=== PATIENT | male | born 1935 | race Caucasian/White ===

== ENCOUNTER 2021-01-05 22:00 | Inpatient (IN) | payer MEDICARE ==
--- NOTE | 2021-01-05 22:28 | ED ---
General Adult HPI - General Chief complaint: Syncope Stated complaint: Fall Time Seen by Provider: 01/05/21 22:02 Source: patient, EMS Mode of arrival: EMS Limitations: physical limitation (Patient very hard of hearing) - History of Present Illness Initial comments: Patient is an 85-year-old man brought by ambulance to be evaluated after family found him on the bedroom floor tonight. The patient reportedly had gone to sleep after eating around 7 PM. He appeared to have fallen from bed around 8:30. When I interview the patient, he complained of some upper neck pain, but stated that he felt this was from reading with his head propped up for 3 hours last night. Onset/Timin -: hour(s) Location: head, neck Consistency: constant Improves with: none Worsens with: none Associated Symptoms: confusion - Related Data Allergies Allergy/AdvReac Type Severity Reaction Status Date / Time No Known Allergies Allergy Verified 01/05/21 22:18 Review of Systems ROS Statement: Those systems with pertinent positive or pertinent negative responses have been documented in the HPI. ROS Other: All systems not noted in ROS Statement are negative. Constitutional: Denies: fever, chills, weakness Eyes: Denies: vision change Respiratory: Denies: cough, dyspnea Cardiovascular: Denies: chest pain Gastrointestinal: Denies: abdominal pain, vomiting, diarrhea Genitourinary: Denies: dysuria Musculoskeletal: Denies: back pain Neurological: Denies: headache, weakness Past Medical History Past Medical History: Hyperlipidemia History of Any Multi-Drug Resistant Organisms: None Reported Past Surgical History: No Surgical Hx Reported Past Psychological History: No Psychological Hx Reported Smoking Status: Never smoker Past Alcohol Use History: None Reported Past Drug Use History: None Reported General Exam Limitations: no limitations General appearance: alert, in no apparent distress Head exam: Present: atraumatic, normocephalic Eye exam: Present: normal appearance. Absent: scleral icterus, conjunctival injection Neck exam: Present: normal inspection. Absent: tenderness Respiratory exam: Present: normal lung sounds bilaterally. Absent: respiratory distress, wheezes, rales, rhonchi, stridor Cardiovascular Exam: Present: irregular rhythm, normal heart sounds. Absent: systolic murmur, diastolic murmur, rubs, gallop GI/Abdominal exam: Present: soft. Absent: distended, tenderness, guarding, rebound, rigid, mass Extremities exam: Present: normal inspection, normal capillary refill. Absent: pedal edema, calf tenderness Back exam: Absent: CVA tenderness (R), CVA tenderness (L) Neurological exam: Present: alert Skin exam: Present: warm, dry, intact, normal color. Absent: rash Course Vital Signs 01/05/21 22:12 Temperature 98.8 F Pulse Rate 111 H Respiratory 20 Rate Blood Pressure 121/93 O2 Sat by Pulse 94 L Oximetry EKG Findings - EKG Results: EKG: interpreted by ERMD, normal axis, normal QRS, normal ST/T EKG shows: atrial fibrillation (Rate 98 bpm) Disposition Referrals: Donovan Garcia MD [Primary Care Provider] - 1-2 days
--- NOTE | 2021-01-05 22:43 | XR ---
EXAMINATION TYPE: XR chest 1V portable DATE OF EXAM: 01/05/2021 COMPARISON: NONE HISTORY: Dysrhythmia. Hypoxemia. TECHNIQUE: Single view FINDINGS: There is some patchy airspace consolidation in the left and right lower lobes. There is no heart failure. Thoracic aorta is atheromatous. Heart is top normal in size. There is no definite pleu ral effusion. Bony thorax is intact. IMPRESSION: Bilateral lower lobe pneumonia.
[2021-01-05 22:49] LABS: HCT 38.2 % (39.0-53.0); HGB 12.6 gm/dL (13.0-17.5); MCH 31.6 pg (25.0-35.0); MCHC 32.9 g/dL (31.0-37.0); MCV 96.1 fL (80.0-100.0); Mean Platelet Volume 8.1; Platelet Count 102 k/uL (150-450); RBC 3.98 m/uL (4.30-5.90); RDW 12.7 % (11.5-15.5); WBC 6.3 k/uL (3.8-10.6)
--- NOTE | 2021-01-05 22:56 | CT ---
EXAMINATION TYPE: CT brain hugo middleton DATE OF EXAM: 01/05/2021 COMPARISON: None HISTORY: Fall CT DLP: 1315.60 mGycm Automated exposure control for dose reduction was used. There is some patchy hypodensity in the periventricular white matter. There is no mass effect nor mid line shift. There is no sign of intracranial hemorrhage. Calvarium is intact. The cervical vertebra have normal alignment. Posterior elements are intact. There is anterior spurrin g at C5-6 and C6-7. Facet joints are intact. Prevertebral soft tissues are intact. The skull base is intact. There is incomplete pneumatization of the mastoid sinuses. There is apparent previous surgery at the right mastoid sinus. IMPRESSION: Chronic small vessel ischemia. No acute intracranial abnormality. Spondylotic changes in the lower cervical spine. No fracture.
[2021-01-05 23:09] LABS: Albumin 3.5 g/dL (3.5-5.0); Calcium 8.4 mg/dL (8.4-10.2); Magnesium 1.3 mg/dL (1.6-2.3); Total Bilirubin 0.9 mg/dL (0.2-1.3); Total Protein 6.3 g/dL (6.3-8.2)
[2021-01-05 23:35] LABS: Band Neutrophils % 22 %; Lymphocytes # (M) 0.32 k/uL (1.0-4.8); Metamyelocytes # (M) 0.13 k/uL (0); Metamyelocytes % 2 %; Monocytes # (M) 0.25 k/uL (0-1.0); Neutrophils % (M) 67 %; Nucleated Red Blood Cells 0 /100 WBC (0-0); Poikilocytosis (M) Present; Total Cells Counted 100
[2021-01-05] MEDS ORDERED: PNEUMONIA PROTOCOL UTILIZED 1 EACH MISC PO PRN (23:59)
[2021-01-05] MEDS ORDERED: AZITHROMYCIN 500 MG in SODIUM CHLORIDE 0.9% 250 ML IVPB STA (23:59)
[2021-01-06] MEDS ORDERED: SODIUM CHLORIDE 0.9% 500 ML 500 ML IV ONE (01:51)
[2021-01-06 05:30] LABS: Appearance,Urine Cloudy (Clear); Bilirubin,Urine Negative (Negative); Blood,Urine Trace (Negative); Color,Urine Yellow; Glucose,Urine (UA) Negative (Negative); Ketones,Urine 1+ (Negative); Leukocyte Esterase,Urine Negative (Negative); Mucus,Urine Rare /hpf; Nitrite,Urine Negative (Negative); Protein,Urine 1+ (Negative); RBC,Urine 2 /hpf (0-5); Specific Gravity,Urine 1.023 (1.001-1.035); Squamous Epithelial Cell,Urine 1 /hpf (0-4); Urobilinogen,Urine <2.0 mg/dL (<2.0); WBC,Urine 2 /hpf (0-5)
--- NOTE | 2021-01-06 06:48 | XR ---
EXAMINATION TYPE: XR chest 1V portable DATE OF EXAM: 01/06/2021 COMPARISON: 01/05/2021 HISTORY: Follow-up pneumonia TECHNIQUE: Single frontal view of the chest is obtained. FINDINGS: There is a large consolidative opacity in the right lower lobe which is unchanged compared to previous. The left lung remains clear. There is no pneumothorax or large pleural effusion. The he art and pulmonary vasculature are normal. The osseous structures are intact IMPRESSION: No interval change in the right lower lobe infiltrate
[2021-01-06] MEDS ORDERED: Magnesium Replacement Protocol 1 EACH MISC MISCELLANE PRN (07:58)
[2021-01-06] MEDS: MAGNESIUM SULFATE-D5W PMX 1 GM in DEXTROSE/WATER 1 100ML.BAG IVPB SCH ×3 (09:03→13:32)
[2021-01-06] MEDS: ENOXAPARIN 60 MG/0.6 ML SYRINGE SQ SCH ×2 (09:04→21:46)
--- NOTE | 2021-01-06 18:21 | P.HPIM ---
History of Present Illness H&P Date: 01/06/21 Chief Complaint: s/p Fall Mr. Blakely is an 85-year-old male with a past medical history of coronary artery disease, hyperlipidemia brought into the hospital by family members as he was found lying on the floor in his bedroom. patient is a poor historian so most of the history is hypertension from the review of records and nursing staff report. Apparently patient went to bed around 7 PM last night and at around 8:30 PM the patient's family members found him on the floor and brought him to the hospital for further evaluation. Patient states that he lives with his 2 d aughters and they moved from [place] 3 months back. So that is not the lot of information in the system regarding his past medical history is as he is new to this area. Family members noted bedside that to get more information currently. Patient is pleasantly confused. On reviewing the patient's vitals at the time of admission his temperature of 98.8, heart rate in 110s, respiratory rate 20, blood pressure 121/90. Saturating at 94% on 5 L of oxygen. On reviewing his labs white count is 6.3, hemoglobin 12.6, platelets 10. Sodium 135 combination 4, chloride 105, bicarb 20. BUN 29, creatinine 1.36. Troponin 0.440, 0.547, 0.345. He had urine analysis test was negative for leukocyte esterase and WBCs or RBCs.Balbuena PCR is negative. He had a chest x-ray that was positive for bilateral lower lobe pneumonia. Patient had CAT scan of the brain that was negative for any acute intracranial abnormality and was showing chronic small vessel ischemia. Review of Systems ROS unobtainable: due to mental status Past Medical History Past Medical History: Hyperlipidemia History of Any Multi-Drug Resistant Organisms: None Reported Past Surgical History: No Surgical Hx Reported Past Psychological History: No Psychological Hx Reported Smoking Status: Never smoker Past Alcohol Use History: None Reported Past Drug Use History: None Reported Medications and Allergies Home Medications Medication Instructions Recorded Confirmed Type Simvastatin [Zocor] 20 mg PO HS 01/05/21 01/05/21 History Tamsulosin HCl [Flomax] 0.4 mg PO HS 01/05/21 01/05/21 History Rivaroxaban [Xarelto] 20 mg PO HS 01/06/21 01/06/21 History Allergies Allergy/AdvReac Type Severity Reaction Status Date / Time No Known Allergies Allergy Verified 01/05/21 23:09 Physical Exam Vitals: Vital Signs Temp Pulse Pulse Resp BP BP Pulse Ox 01/06/21 08:00 68 91/54 98 01/06/21 04:00 98 F 80 22 90/57 93 L 01/06/21 02:00 20 01/06/21 01:33 EDT 97 F L 90 20 82/57 93 L 01/06/21 01:00 EDT 93 20 96/50 91 L 01/05/21 23:18 98 20 96/58 91 L 01/05/21 22:12 98.8 F 111 H 20 121/93 94 L Intake and Output 01/05/21 01/06/21 01/06/21 23:59 06:59 14:59 Intake Total 240 Output Total Balance 240 Intake: Oral 240 Output: Urine Other: Weight PHYSICAL EXAMINATION: GENERAL: The patient is alert and oriented x2, cachectic HEENT: Pupils are round and equally reacting to light. EOMI. No scleral icterus. No conjunctival pallor. Normocephalic, atraumatic. CARDIOVASCULAR: Irregularly irregular PULMONARY: Breath sounds positive bilaterally. Crackles at the lower lung bases. ABDOMEN: Soft, nontender, no organomegaly. Bowel sounds are positive. MUSCULOSKELETAL: No joint swelling or deformity. EXTREMITIES: No cyanosis or clubbing or edema. NEUROLOGICAL: Gross neurological examination did not reveal any focal deficits. Results CBC & Chem 7: 01/07/21 08:34 01/07/21 08:34 Labs: Abnormal Lab Results - Last 24 Hours (Table) 01/05/21 01/05/21 01/05/21 Range/Units 22:32 22:32 22:32 RBC 3.98 L (4.30-5.90) m/uL Hgb 12.6 L (13.0-17.5) gm/dL Hct 38.2 L (39.0-53.0) % Plt Count 102 L (150-450) k/uL Lymphocytes # (Manual) 0.32 L (1.0-4.8) k/uL Metamyelocytes # (Man) 0.13 H (0) k/uL Sodium 135 L (137-145) mmol/L Carbon Dioxide 20 L (22-30) mmol/L BUN 29 H (9-20) mg/dL Creatinine 1.36 H (0.66-1.25) mg/dL Magnesium 1.3 L (1.6-2.3) mg/dL Troponin I 0.440 H* (0.000-0.034) ng/mL Urine Protein (Negative) Urine Ketones (Negative) Urine Blood (Negative) Urine Mucus (None) /hpf 01/06/21 01/06/21 Range/Units 03:42 05:00 RBC (4.30-5.90) m/uL Hgb (13.0-17.5) gm/dL Hct (39.0-53.0) % Plt Count (150-450) k/uL Lymphocytes # (Manual) (1.0-4.8) k/uL Metamyelocytes # (Man) (0) k/uL Sodium (137-145) mmol/L Carbon Dioxide (22-30) mmol/L BUN (9-20) mg/dL Creatinine (0.66-1.25) mg/dL Magnesium (1.6-2.3) mg/dL Troponin I 0.547 H* (0.000-0.034) ng/mL Urine Protein 1+ H (Negative) Urine Ketones 1+ H (Negative) Urine Blood Trace H (Negative) Urine Mucus Rare H (None) /hpf Assessment and Plan Assessment: ASSESSMENT Community acquired pneumonia Atrial fibrillation Elevation in troponin Possible acute kidney injury, baseline creatinine unknown Status post fall Hypertension BPH Mild protein calorie malnutrition PLAN: Patient has been started on ceftriaxone and Zithromax, chest x-ray showing bilateral infiltrates. A. fib rate is controlled, started on Lovenox for anticoagulation. On reviewing the patient's home medications Xarelto has been on the list, patient is not sure why he takes it. Cardiology has been consulted. Further recommendations depending on the progress of the patient.
--- NOTE | 2021-01-06 20:20 | P.CRDCN ---
History of Present Illness History of present illness: HISTORY OF PRESENTING ILLNESS Patient is a pleasant 85-year-old male with a history of atrial fibrillation, hyperlipidemia, cigar abuse, relatively low normal blood pressure and previous pneumonia approximately 2 years ago who presents secondary to episode of falling and inability to get back up. Patient states he had been feeling fairly normal however then fell, denies any headedness or actual loss of consciousness however states he fell and was unable to get back up. He therefore started pounding on the floor and his daughter helped him get up and called EMS. Patient denies difficulty speaking however grandson states he apparently was unable to voice his concerns and was just pounding on the floor. Patient has some difficulty explaining the episode. He also states he felt like he was "paralyzed "like his body was not working. Denies any focal weakness. Apparently he had been somewhat confused most of last night when he presented however per grandson he is more alert and back to his normal self. He denies any chest pain, pressure, tightness. Denies any shortness breath. Currently he states he feels back to normal. Denies any recent fevers or chills. Chest x-ray however does show concern of right pneumonia. He states he had a history of pneumonia approximat dieter 2-3 years ago. No recent weight loss. He normally is fairly active and is a martial arts blackballed. He goes for jogs most days and denies any decreased exercise tolerance. REVIEW OF SYSTEMS At the time of my exam: CONSTITUTIONAL: Denies fever or chills. CARDIOVASCULAR: No chest pain, shortness of breath, orthopnea, PND or palpitations. RESPIRATORY: Denies cough. GASTROINTESTINAL: Denies abdominal pain, diarrhea, constipation, nausea or vomiting. MUSCULOSKELETAL: Denies myalgias. NEUROLOGIC: Denies numbness, tingling or weakness. ENDOCRINE: Denies fatigue, weight change, polydipsia or polyurina. GENITOURINARY: Denies burning, hematuria or urgency with micturation. HEMATOLOGIC: Denies history of anemia or bleeding. PHYSICAL EXAMINATION Vital signs reviewed. CONSTITUTIONAL: No apparent distress. HEENT: Head is normocephalic. Pupils are equal, round. Sclerae anicteric. Mucous membranes of the mouth are moist. No JVD. No carotid bruit. CHEST EXAMINATION: +right greater than left rhonchi HEART EXAMINATION: Regular rate and rhythm. S1, S2 heard. No murmurs, gallops or rub. ABDOMEN: Soft, nontender. Positive bowel sounds. EXTREMITIES: 2+ peripheral pulses, no lower extremity edema and no calf tenderness. NEUROLOGIC EXAMINATION: Patient is awake, alert and oriented x3. ASSESSMENT 1. Fall with apparent inability to get up, unclear if related to hypotension/near syncope versus other. Does not appear consistent with stroke 2. Apparent altered mental status first when presenting to emergency department, improved per grandson 3. Elevated troponin, no clear angina-type symptoms. 4. Right lung infiltrate, no clear symptoms of pneumonia. Rule out pneumonia versus other, malignancy 5. Atrial fibrillation, appears persistent 6. Borderline blood pressures, history of low normal BP 7. Acute kidney injury, creatinine 1.36, unclear baseline PLAN Patient with complex presentation and patient having somewhat of a difficult time explaining presentation. Appears he had a near syncopal episode with a fall and had difficulty getting up. He does have mildly elevated troponins. Check 2-D echo. There is always a consideration of possible pulmonary embolism with mildly elevated troponins and near syncope however creatinine mildly elevated and we will continue with heparin drip at this time and may consider CTA if creatinine remains stable, improved tomorrow. Gentle IV fluids. Rule out non-STEMI however not exhibiting any angina-type symptoms. Continue with supportive care, antibiotics. Further recommendations to follow. Past Medical History Past Medical History: Hyperlipidemia History of Any Multi-Drug Resistant Organisms: None Reported Past Surgical History: No Surgical Hx Reported Past Psychological History: No Psychological Hx Reported Smoking Status: Never smoker Past Alcohol Use History: None Reported Past Drug Use History: None Reported Medications and Allergies Home Medications Medication Instructions Recorded Confirmed Type Simvastatin [Zocor] 20 mg PO HS 01/05/21 01/05/21 History Tamsulosin HCl [Flomax] 0.4 mg PO HS 01/05/21 01/05/21 History Rivaroxaban [Xarelto] 20 mg PO HS 01/06/21 01/06/21 History Allergies Allergy/AdvReac Type Severity Reaction Status Date / Time No Known Allergies Allergy Verified 01/05/21 23:09 Physical Exam Vitals: Vital Signs Temp Pulse Pulse Resp BP BP Pulse Ox 01/06/21 16:00 97.0 F L 71 16 96/50 100 01/06/21 14:00 74 20 01/06/21 13:16 72 20 90/58 100 01/06/21 12:00 64 93/58 100 01/06/21 08:00 68 91/54 98 01/06/21 04:00 98 F 80 22 90/57 93 L 01/06/21 02:00 20 01/06/21 01:33 EDT 97 F L 90 20 82/57 93 L 01/06/21 01:00 EDT 93 20 96/50 91 L 01/05/21 23:18 98 20 96/58 91 L 01/05/21 22:12 98.8 F 111 H 20 121/93 94 L Intake and Output 01/06/21 01/06/21 01/06/21 06:59 14:59 22:59 Intake Total 240 Output Total Balance 240 Intake: Oral 240 Output: Urine Results 01/05/21 22:32 01/05/21 22:32 Cardiac Enzymes 01/05/21 01/05/21 01/06/21 Range/Units 22:32 22:32 03:42 AST 36 (17-59) U/L Troponin I 0.440 H* 0.547 H* (0.000-0.034) ng/mL 01/06/21 Range/Units 13:14 AST (17-59) U/L Troponin I 0.345 H* (0.000-0.034) ng/mL CBC 01/05/21 Range/Units 22:32 WBC 6.3 (3.8-10.6) k/uL RBC 3.98 L (4.30-5.90) m/uL Hgb 12.6 L (13.0-17.5) gm/dL Hct 38.2 L (39.0-53.0) % Plt Count 102 L (150-450) k/uL Comprehensive Metabolic Panel 01/05/21 Range/Units 22:32 Sodium 135 L (137-145) mmol/L Potassium 4.0 (3.5-5.1) mmol/L Chloride 105 (98-107) mmol/L Carbon Dioxide 20 L (22-30) mmol/L BUN 29 H (9-20) mg/dL Creatinine 1.36 H (0.66-1.25) mg/dL Glucose 82 (74-99) mg/dL Calcium 8.4 (8.4-10.2) mg/dL AST 36 (17-59) U/L ALT 16 (4-49) U/L Alkaline Phosphatase 68 (38-126) U/L Total Protein 6.3 (6.3-8.2) g/dL Albumin 3.5 (3.5-5.0) g/dL Current Medications Generic Name Dose Route Start Last Admin Trade Name Freq PRN Reason Stop Dose Admin Atorvastatin Calcium 10 mg 01/06/21 21:00 Atorvastatin 10 Mg Tab PO HS MARICARMEN Azithromycin 500 mg 01/06/21 21:00 Azithromycin 500 Mg Tab PO 01/07/21 21:01 HS MARICARMEN Enoxaparin Sodium 60 mg 01/06/21 09:00 01/06/21 09:04 Enoxaparin 60 Mg/0.6 Ml Syringe SQ 60 mg Q12HR MARICARMEN Administration Ceftriaxone Sodium 2 gm/ 50 mls @ 100 mls/hr 01/07/21 00:00 Sodium Chloride IVPB 01/10/21 00:29 Q24H MARICARMEN Miscellaneous Information 1 each 01/05/21 23:59 Pneumonia Protocol Utilized 1 Each Misc PO ONCE PRN Per Protocol Miscellaneous Information 1 each 01/06/21 07:58 Magnesium Replacement Protocol 1 Each Misc MISCELLANE DAILY PRN Per Protocol Protocol Tamsulosin HCl 0.4 mg 01/06/21 21:00 Tamsulosin 0.4 Mg Cap.Er.24h PO HS MARICARMEN Intake and Output 01/06/21 01/06/21 01/06/21 06:59 14:59 22:59 Intake Total 240 Output Total Balance 240 Intake: Oral 240 Output: Urine 01/05/21 22:32 01/05/21 22:32
[2021-01-06] MEDS: AZITHROMYCIN 500 MG TAB PO SCH (21:42)
[2021-01-06] MEDS: TAMSULOSIN 0.4 MG CAP.ER.24H PO SCH (21:42)
[2021-01-06] MEDS: SODIUM CHLORIDE 0.9% 1,000 ML IV SCH (21:43)
[2021-01-06] MEDS: ATORVASTATIN 10 MG TAB PO SCH (21:43)
[2021-01-07] MEDS: ENOXAPARIN 60 MG/0.6 ML SYRINGE SQ SCH ×2 (08:24→20:22)
--- NOTE | 2021-01-07 09:32 | ECHOF ---
Referral Reason:A fib MEASUREMENTS -------- HEIGHT: 165.1 cm WEIGHT: 59.9 kg BP: RVIDd: 4.8 cm (< 3.3) IVSd: 1.4 cm (0.6 - 1.1) LVIDd: 4.0 cm (3.9 - 5.3) LVPWd: 1.3 cm (0.6 - 1.1) IVSs: 1.7 cm LVIDs: 3.1 cm LVPWs: 1.6 cm LA Diam: 4.5 cm (2.7 - 3.8) AV maxP.92 mmHg AV meanP.36 mmHg RAP: 5.00 mmHg RVSP: 29.84 mmHg FINDINGS -------- This was a technically adequate study. The left ventricular size is normal. There is mild concentric left ventricular hypertrophy. Overa ll left ventricular systolic function is mild-moderately impaired with, an EF between 40 - 45 %. The right ventricle is severely enlarged. The left atrium is mildly dilated. The right atrial size is normal. There is moderate aortic valve sclerosis. There is mild aortic regurgitation. There is moderate a ortic stenosis present. Peak/mean gradient across the Aortic Valve is 56.92mmHg / 31.36mmHg. Mild mitral annular calcification present. [id number] mitral regurgitation is present. Rnlb-fi-hpookevu tricuspid regurgitation present. Right ventricular systolic pressure is normal at < 35 mmHg. Trace/mild (physiologic) pulmonic regurgitation. There is no pericardial effusion. CONCLUSIONS -------- 1. There is mild concentric left ventricular hypertrophy. 2. Overall left ventricular systolic function is mild-moderately impaired with, an EF between 40 - 45 %. 3. The right ventricle is severely enlarged. 4. The left atrium is mildly dilated. 5. There is mild aortic regurgitation. 6. There is moderate aortic stenosis present. 7. Peak/mean gradient across the Aortic Valve is 56.92mmHg / 31.36mmHg. 8. Mild mitral annular calcification present. 9. Itjm-dv-jetwdafv mitral regurgitation is present. 10. Pbnn-rl-vzoszbin tricuspid regurgitation present. 11. Right ventricular systolic pressure is normal at < 35 mmHg. 12. Trace/mild (physiologic) pulmonic regurgitation. 13. There is no pericardial effusion. DIE SET UP WORKER: Tracy Pedro RDCS
[2021-01-07 12:43] LABS: Basophils % (A) 0 %; Eosinophils % (A) 0 %; HCT 32.3 % (39.0-53.0); HGB 10.8 gm/dL (13.0-17.5); Lymphocytes # (A) 0.4 k/uL (1.0-4.8); Lymphocytes % (A) 4 %; MCHC 33.4 g/dL (31.0-37.0); MCV 95.8 fL (80.0-100.0); Mean Platelet Volume 9.9; Monocytes # (A) 0.2 k/uL (0-1.0); Monocytes % (A) 3 %; Neutrophils # (A) 8.3 k/uL (1.3-7.7); Neutrophils % (A) 92 %; RBC 3.37 m/uL (4.30-5.90); RDW 13.5 % (11.5-15.5)
[2021-01-07 12:56] LABS: Calcium 7.9 mg/dL (8.4-10.2); Potassium 4.1 mmol/L (3.5-5.1)
[2021-01-07 13:19] LABS: Platelet Count 90 k/uL (150-450)
--- NOTE | 2021-01-07 14:49 | P.PN ---
Subjective Progress Note Date: 01/07/21 HISTORY OF PRESENTING ILLNESS Patient is a pleasant 85-year-old male with a history of atrial fibrillation, hyperlipidemia, cigar abuse, relatively low normal blood pressure and previous pneumonia approximately 2 years ago who presents secondary to episode of falling and inability to get back up. Patient states he had been feeling fairly normal however then fell, denies any headedness or actual loss of consciousness however states he fell and was unable to get back up. He therefore started pounding on the floor and his daughter helped him get up and called EMS. Patient denies difficulty speaking however grandson states he apparently was unable to voice his concerns and was just pounding on the floor. Patient has some difficulty explaining the episode. He also states he felt like he was "paralyzed "like his body was not working. Denies any focal weakness. Apparently he had been somewhat confused most of last night when he presented however per grandson he is more alert and back to his normal self. He denies any chest pain, pressure, tightness. Denies any shortness breath. Currently he states he feels back to normal. Denies any recent fevers or chills. Chest x-ray however does show concern of right pneumonia. He states he had a history of pneumonia approximately 2-3 years ago. No recent weight loss. He normally is fairly active and is a martial arts blackballed. He goes for jogs most days and denies any decreased exercise tolerance. 01/07/2021 Patient examined this morning at the bedside. Denies chest pain or pressure. Denies SOB. Vital signs are stable. echocardiogram completed revealing ejection fraction 40-45%, mild aortic regurgitation, moderate aortic stenosis, diaj-jw-ururztsx mitral regurgitation, and mild to moderate tricuspid regurgitation. PHYSICAL EXAMINATION Vital signs reviewed. CONSTITUTIONAL: No apparent distress. HEENT: Head is normocephalic. Pupils are equal, round. Sclerae anicteric. Mucous membranes of the mouth are moist. No JVD. No carotid bruit. CHEST EXAMINATION: Lungs diminished bilaterally HEART EXAMINATION: Regular rate and rhythm. S1, S2 heard. ABDOMEN: Soft, nontender. Positive bowel sounds. EXTREMITIES: 2+ peripheral pulses, no lower extremity edema and no calf tenderness. NEUROLOGIC EXAMINATION: Patient is awake, alert and oriented x3. ASSESSMENT 1. Fall with apparent inability to get up, unclear if related to hyp otension/near syncope versus other. Does not appear consistent with stroke 2. Apparent altered mental status first when presenting to emergency department, improved per grandson 3. Elevated troponin, no signs of ACS 4. Right lung infiltrate, no clear symptoms of pneumonia. Rule out pneumonia versus other, malignancy 5. Atrial fibrillation, appears persistent 6. Borderline blood pressures, history of low normal BP 7. Acute kidney injury, creatinine 1.36, unclear baseline 8. Valvular heart disease PLAN Continue current cardiac medications Obtain CTA to r/o PE Continue telemetry monitoring Further recommendations pending patient course Nurse practitioner note has been reviewed by physician. Signing provider agrees with the documented findings, assessment, and plan of care. Objective - Vital Signs Vital signs: Vital Signs Temp 97.7 F 01/07/21 11:55 Pulse 88 01/07/21 11:55 Resp 16 01/07/21 11:55 BP 97/53 01/07/21 11:55 Pulse Ox 98 01/07/21 11:55 Intake & Output 01/06/21 01/07/21 01/07/21 18:59 06:59 18:59 Intake Total 240 460 240 Balance 240 460 240 Weight 60.3 kg Intake: Intake, IV Titration 360 Amount Sodium Chloride 0.9% 1, 360 000 ml @ 50 mls/hr IV . Q20H MARICARMEN Rx#:[id number] Oral 240 100 240 Other: # Bowel Movements 0 - Labs CBC & Chem 7: 01/07/21 08:34 01/07/21 08:34 Labs: Abnormal Lab Results - Last 24 Hours (Table) 01/06/21 01/07/21 01/07/21 Range/Units 22:20 08:34 08:34 RBC 3.37 L (4.30-5.90) m/uL Hgb 10.8 L (13.0-17.5) gm/dL Hct 32.3 L (39.0-53.0) % Plt Count 90 L (150-450) k/uL Neutrophils # 8.3 H (1.3-7.7) k/uL Lymphocytes # 0.4 L (1.0-4.8) k/uL D-Dimer 1.77 H (<0.60) mg/L FEU Sodium 133 L (137-145) mmol/L Carbon Dioxide 19 L (22-30) mmol/L BUN 40 H (9-20) mg/dL Calcium 7.9 L (8.4-10.2) mg/dL Microbiology - Last 24 Hours (Table) 01/06/21 00:15 Blood Culture - Preliminary Blood No Growth after 24 hours 01/06/21 00:00 Blood Culture - Preliminary Blood No Growth after 24 hours
[2021-01-07] MEDS: SODIUM CHLORIDE 0.9% 1,000 ML IV SCH (15:35)
--- NOTE | 2021-01-07 18:27 | CT ---
EXAMINATION TYPE: CT angio chest DATE OF EXAM: 01/07/2021 COMPARISON: None HISTORY: Elevated d-dimer. CT DLP: 269.9 mGycm Automated exposure control for dose reduction was used. CONTRAST: Performed with IV Contrast, patient injected with 80 mL of Isovue 370. Images obtained from the thoracic inlet to the diaphragm with IV contrast. There are 3-D post process ed images. There are mild bilateral pleural effusions. There is bilateral lower lobe pulmonary airspace consolid ation and atelectasis. Thoracic aorta is atheromatous. There are bilateral enlarged mediastinal and bronchial lymph nodes up to 2 cm. There is no thoracic aortic aneurysm or dissection. The ascending aorta measures 3.7 cm. There is no evidence of filling defect in the pulmonary arteries. The thoracic spine is intact. There is no compression fracture. There is mild spurring in the thoraci c spine. Sternum is intact. Upper abdominal soft tissues are intact. IMPRESSION: Bilateral lower lobe pneumonia and atelectasis. Borderline cardiomegaly. No evidence of pulmonary embolism. Mild mediastinal and bronchial adenopathy is likely inflammatory.
[2021-01-07] MEDS ORDERED: PNEUMOCOCCAL VACC-PNEUMOVAX 23 25 MCG/0.5 ML VIAL IM ONE (20:00)
[2021-01-07] MEDS ORDERED: INFLUENZA VACC HIGH-DOSE (65+) 240 MCG/0.7 ML SYRINGE IM ONE (20:00)
[2021-01-07] MEDS: AZITHROMYCIN 500 MG TAB PO SCH (20:22)
[2021-01-07] MEDS: ATORVASTATIN 10 MG TAB PO SCH (20:22)
[2021-01-07] MEDS: TAMSULOSIN 0.4 MG CAP.ER.24H PO SCH (20:22)
--- NOTE | 2021-01-07 23:57 | P.PN ---
Subjective Progress Note Date: 01/07/21 Principal diagnosis: S/p Fall Mr. Blakely is an 85-year-old male with a past medical history of coronary artery disease, hyperlipidemia brought into the hospital by family members as he was found lying on the floor in his bedroom. patient is a poor historian so most of the history is hypertension from the review of records and nursing staff report. Apparently patient went to bed around 7 PM last night and at around 8:30 PM the patient's family members found him on the floor and brought him to the hospital for further evaluation. Patient states that he lives with his 2 d aughters and they moved from [place] 3 months back. So that is not the lot of information in the system regarding his past medical history is as he is new to this area. Family members noted bedside that to get more information currently. Patient is pleasantly confused. On reviewing the patient's vitals at the time of admission his temperature of 98.8, heart rate in 110s, respiratory rate 20, blood pressure 121/90. Saturating at 94% on 5 L of oxygen. On reviewing his labs white count is 6.3, hemoglobin 12.6, platelets 10. Sodium 135 combination 4, chloride 105, bicarb 20. BUN 29, creatinine 1.36. Troponin 0.440, 0.547, 0.345. He had urine analysis test was negative for leukocyte esterase and WBCs or RBCs.Balbuena PCR is negative. He had a chest x-ray that was positive for bilateral lower lobe pneumonia. Patient had CAT scan of the brain that was negative for any acute intracranial abnormality and was showing chronic small vessel ischemia. On 01/08/2021 patient is seen and examined at the bedside. He is comfortably lying in bed appears to be in no acute distress. Patient's mentation improved a lot compared to yesterday. Patient denies having any active complaints of chest pain or palpitations. He denies having any cough or difficulty breathing. Abdominal pain nausea vomiting or diarrhea. On reviewing the patient's vitals temperature of 96.9, heart rate 100s to 110s blood pressure 105/59 saturating at 99% on 2 L of oxygen. On reviewing the patient's labs white count of 9 hemoglobin 10.8, platelets 90. Sodium 133, potassium 4.1, chloride 106, bicarb 19, BUN 40, creatinine 1.17. Patient's medications have been reviewed. Active Medications Atorvastatin Calcium (Atorvastatin 10 Mg Tab) 10 mg PO [facility] Last Admin: 01/07/21 20:22 Dose: 10 mg Documented by: Azithromycin (Azithromycin 500 Mg Tab) 500 mg PO [facility] Enoxaparin Sodium (Enoxaparin 60 Mg/0.6 Ml Syringe) 60 mg SQ Q12HR [facility] Last Admin: 01/07/21 20:22 Dose: 60 mg Documented by: Ceftriaxone Sodium 2 gm/ (Sodium Chloride) 50 mls @ 100 mls/hr IVPB Q24H [facility] Stop: 01/10/21 00:29 Last Admin: 01/07/21 01:20 Dose: 100 mls/hr Documented by: Sodium Chloride (Saline 0.9%) 1,000 mls @ 50 mls/hr IV .Q20H [facility] Last Admin: 01/07/21 15:35 Dose: 50 mls/hr Documented by: Miscellaneous Information (Pneumonia Protocol Utilized 1 Each Mis) 1 each PO ONCE PRN PRN Reason: Per Protocol Miscellaneous Information (Magnesium Replacement Protocol 1 Each Mis) 1 each MISCELLANE DAILY PRN; Protocol PRN Reason: Per Protocol Tamsulosin HCl (Tamsulosin 0.4 Mg Cap.Er.24h) 0.4 mg PO [facility] Last Admin: 01/07/21 20:22 Dose: 0.4 mg Documented by: Objective - Vital Signs Vital signs: Vital Signs Temp 97 F L 01/07/21 08:15 Pulse 82 01/07/21 08:15 Resp 16 01/07/21 08:15 BP 99/60 01/07/21 08:15 Pulse Ox 97 01/07/21 08:15 Intake & Output 01/06/21 01/07/21 01/07/21 18:59 06:59 18:59 Intake Total 240 460 Balance 240 460 Weight 60.3 kg Intake: Intake, IV Titration 360 Amount Sodium Chloride 0.9% 1, 360 000 ml @ 50 mls/hr IV . Q20H [facility] Rx#:[id number] Oral 240 100 - Exam PHYSICAL EXAMINATION: GENERAL: The patient is alert and oriented x2, cachectic HEENT: Pupils are round and equally reacting to light. EOMI. No scleral icterus. No conjunctival pallor. Normocephalic, atraumatic. CARDIOVASCULAR: Irregularly irregular PULMONARY: Breath sounds positive bilaterally. Crackles at the lower lung bases. ABDOMEN: Soft, nontender, no organomegaly. Bowel sounds are positive. MUSCULOSKELETAL: No joint swelling or deformity. EXTREMITIES: No cyanosis or clubbing or edema. NEUROLOGICAL: Gross neurological examination did not reveal any focal deficits. - Labs CBC & Chem 7: 01/07/21 08:34 01/07/21 08:34 Labs: Abnormal Lab Results - Last 24 Hours (Table) 01/06/21 01/06/21 Range/Units 13:14 22:20 D-Dimer 1.77 H (<0.60) mg/L FEU Troponin I 0.345 H* (0.000-0.034) ng/mL Microbiology - Last 24 Hours (Table) 01/06/21 00:15 Blood Culture - Preliminary Blood No Growth after 24 hours 01/06/21 00:00 Blood Culture - Preliminary Blood No Growth after 24 hours Assessment and Plan Assessment: ASSESSMENT Community acquired pneumonia Atrial fibrillation Elevation in troponin Possible acute kidney injury, baseline creatinine unknown Status post fall Hypertension BPH Mild protein calorie malnutrition PLAN: Patient had elevated troponins, cardiology was consulted and patient had an echocardiogram done showing ejection fraction of 40 to 45%. D-dimer has been ordered and it was elevated at 1.[address] angio of the chest that was negative for PE but was showing bilateral lower lobe pneumonia and atelectasis with borderline cardiomegaly. Patient's creatinine at 1.17 today. We will repeat a.m. labs. Continue with ceftriaxone and Zithromax for currently acquired pneumonia. Will order bilateral carotid artery doppler. To consider Neurology consult. Further recommendations depending on the progress of the patient.
[2021-01-08 08:03] LABS: Basophils % (A) 0 %; Eosinophils % (A) 0 %; HCT 31.7 % (39.0-53.0); HGB 10.5 gm/dL (13.0-17.5); Lymphocytes # (A) 0.6 k/uL (1.0-4.8); Lymphocytes % (A) 7 %; MCH 31.9 pg (25.0-35.0); MCHC 33.1 g/dL (31.0-37.0); MCV 96.4 fL (80.0-100.0); Mean Platelet Volume 9.1; Monocytes # (A) 0.3 k/uL (0-1.0); Monocytes % (A) 3 %; Neutrophils # (A) 7.2 k/uL (1.3-7.7); Neutrophils % (A) 88 %; RBC 3.28 m/uL (4.30-5.90); RDW 12.7 % (11.5-15.5); WBC 8.2 k/uL (3.8-10.6)
[2021-01-08 08:22] LABS: Platelet Count 91 k/uL (150-450)
--- NOTE | 2021-01-08 08:27 | US ---
EXAMINATION TYPE: US carotid duplex BILAT DATE OF EXAM: 01/08/2021 COMPARISON: NONE CLINICAL HISTORY: s/p fall . Altered mental status, abnormal gait EXAM MEASUREMENTS: RIGHT: Peak Systolic Velocity (PSV) cm/sec ----- Right CCA: 61.0 ----- Right ICA: 79.0 ----- Right ECA: 80.1 ICA/CCA ratio: 1.3 RIGHT: End Diastole cm/sec ----- Right CCA: 17.4 ----- Right ICA: 28.5 ----- Right ECA: 0.0 LEFT: Peak Systolic Velocity (PSV) cm/sec ----- Left CCA: 93.1 ----- Left ICA: 104.7 ----- Left ECA: 66.9 ICA/CCA ratio: 1.1 LEFT: End Diastole cm/sec ----- Left CCA: 23.2 ----- Left ICA: 47.8 ----- Left ECA: 0.0 VERTEBRALS (direction of flow): Right Vertebral: Antegrade Left Vertebral: Antegrade Rhythm: Arrhythmia Heterogeneous plaque bilaterally, however no significant stenosis was visualized IMPRESSION: Moderate atherosclerotic changes without hemodynamically significant stenosis seen in ei ther internal carotid artery. Arrhythmia noted during real-time scanning. Correlate clinically. Criteria for Assigning % of Stenosis / Diameter reduction (Estimation based on the indirect measurements of the internal carotid artery velocities (ICA PSV). 1. Normal (no stenosis)=ICA PSV < 125 cm/s: ratio < 2.0: ICA EDV<40 cm/s. 2. Less than 50% stenosis=ICA PSV < 125 cm/s: ratio < 2.0: ICA EDV<40 cm/s. 3. 50 to 69% stenosis=ICA PSV of 125 to 230 cm/s: ration 2.0 ? 4.0: ICA EDV 40-100 cm/s. 4. Greater than 70% stenosis to near occlusion= ICA PSV > 230 cm/s: ratio > 4.0: ICA EDV > 100 cm/s. 5. Near occlusion= ICA PSV velocities may be low or undetectable: variable ratio and ICA EDV. 6. Total occlusion=unable to detect flow.
[2021-01-08 08:30] LABS: Calcium 7.9 mg/dL (8.4-10.2); Potassium 3.8 mmol/L (3.5-5.1)
[2021-01-08] MEDS: ENOXAPARIN 60 MG/0.6 ML SYRINGE SQ SCH (10:28)
--- NOTE | 2021-01-08 12:05 | P.CNNES ---
History of Present Illness Consult date: 01/08/21 Requesting physician: Renea Zimmerman Reason for Consult: falls History of Present Illness: This is an 85-year-old gentleman with medical history of new onset atrial fibrillation, coronary artery disease, hypertension, hyperlipidemia who was brought to the emergency department on 01/05/2021 by family members because she was found lying on the floor in the bedroom. According to patient he said he was sleeping on the couch on 01/05/2021 then when he tried to get up he felt his entire body was weak and so he had to crawl down out of the couch to the floor. He denies any urinary or bowel incontinence or any jerking of any extremities. He denies any loss of consciousness. Patient denies any recall of chest palpita tion. He denies of any history of seizures. He denies of headache, visual disturbance or getting his words out. He feels he is currently back to baseline. Some other workup in the hospital consisted of: Initial goals: Blood pressure of 121/93, heart rate of 111, temperature of 98.0 Fahrenheit, her spelled 20, pulse ox of 94% L on 5 L of nasal cannula. Patient had the blood pressure initially and systolic in the 90s over 50s then a got as low as 82/57 area and he continues to have systolic blood pressure in the 90s over 60s. Initial white blood cell was 6.3 thousand. Platelet count is 100 to and was current one is 91,000. Creatinine on presentation is 1.36 and most current one is 1.04 which has resolved. Sodium is 135, glucose is 82, calcium is 8.4, magnesium is 1.3, AST of 36 and ALT of 16. Troponin is the 0.440 presentation then the got as high as 0.47. Urinalysis negative for urinary tract infection Coronavirus PCR was not detected. CT of the head is reported as chronic small vessel ischemia. No acute intracranial abnormality. Personally reviewed the CT of the head there is no acute or subacute ischemia or no interpretable hemorrhage. CT cervical spine was reported as spondylitic change in the lower cervical spine. No fracture. Carotid duplex is reported as moderate of his carotid change without hemodynamic significant stenosis seen in either internal carotid artery. Arrhythmia noted during the real time scanning. 2-D echo was reported as mild concentric left ventricular hypertrophy. Left ventricle systolic function is mild to moderately impaired with ejection fraction of 40-45%. Left atrium is mildly dilated that. Mild to moderate mitral triglycerides regurgitation. Cardiology is on board and it felt a fall with apparent inability to get up what is unclear if related to hypotension or near syncope versus other. During the hospital stay it was felt the patient has to be acquired pneumonia possible acute kidney injury. Review of Systems Review of system: The 12 point system was reviewed and apparent positive and negative per HPI. Past Medical History Past Medical History: Hyperlipidemia History of Any Multi-Drug Resistant Organisms: None Reported Past Surgical History: No Surgical Hx Reported Additional Past Surgical History / Comment(s): bilateral knee surgery Additional Past Anesthesia/Blood Transfusion Reaction / Comment(s): Pt states he has never had a blood transfusion Past Psychological History: No Psychological Hx Reported Smoking Status: Never smoker Past Alcohol Use History: None Reported Past Drug Use History: None Reported Medications and Allergies Home Medications Medication Instructions Recorded Confirmed Type Simvastatin [Zocor] 20 mg PO HS 01/05/21 01/05/21 History Tamsulosin HCl [Flomax] 0.4 mg PO HS 01/05/21 01/05/21 History Rivaroxaban [Xarelto] 20 mg PO HS 01/06/21 01/06/21 History Allergies Allergy/AdvReac Type Severity Reaction Status Date / Time No Known Allergies Allergy Verified 01/05/21 23:09 Physical Examination - Vital Signs Vital Signs: Vital Signs Temp Pulse Resp BP Pulse Ox 01/08/21 08:00 97.7 F 66 16 95/60 97 01/08/21 04:00 97.5 F L 80 18 103/62 96 01/08/21 02:00 90 18 01/08/21 00:00 98.4 F 90 18 97/55 95 01/07/21 23:00 97 01/07/21 20:00 98.5 F 98 16 98/59 97 01/07/21 15:53 16 98 01/07/21 15:50 96.9 F L 108 H 16 105/59 99 01/07/21 11:55 97.7 F 88 16 97/53 98 Intake and Output 01/07/21 01/08/21 01/08/21 22:59 06:59 14:59 Intake Total 120 700 Output Total 250 Balance -130 700 Intake: Intake, IV Titration 700 Amount Sodium Chloride 0.9% 1, 600 000 ml @ 50 mls/hr IV . Q20H [facility] Rx#:[id number] cefTRIAXone 2 gm In 100 Sodium Chloride 0.9% 50 ml @ 100 mls/hr IVPB Q24H [facility] Rx#:[id number] Oral 120 Output: Urine 250 Other: # Voids 1 Weight 56 kg GENERAL: The patient is lying in bed and is not in acute distress. CHEST: The heart rate is regular rate rhythm. No murmurs to auscultation. LUNG: Clear to auscultation bilaterally no wheezing noted throughout. Not labored breathing. ABDOMEN/GI: Bowel sounds present in all 4 quadrants. No tenderness to palpation throughout. NEUROLOGICAL: Higher mental function: The patient is awake, alert, oriented to self, place and time. Patient is following commands. No aphasia and no neglect. Cranial nerves: The pupils are round, equal and reactive to light and accommodation. Visual hoffman are full to confrontation throughout. Extraocular movement is intact no nystagmus is noted. Facial sensation is normal to touch throughout. The facial strength is normal throughout. Hearing is severely decreased bilaterally to hand rub. Tongue is midline and moved [id number] without any difficulty. No dysarthria is noted. Shoulder shrug is normal bi laterally. Motor: The strength is 5 over 5 throughout. Normal tone and bulk. Cerebellum: Normal finger to nose bilaterally. Sensation: Sensation is normal to touch throughout. Reflexes (right/left): 1+ throughout. Plantars are downgoing bilaterally. Results - Laboratory Findings CBC and BMP: 01/08/21 07:36 01/08/21 07:36 Abnormal Lab Findings: Abnormal Labs 01/05/21 01/05/21 01/05/21 22:32 22:32 22:32 RBC 3.98 L Hgb 12.6 L Hct 38.2 L Plt Count 102 L Neutrophils # Lymphocytes # Lymphocytes # (Manual) 0.32 L Metamyelocytes # (Man) 0.13 H D-Dimer Sodium 135 L Carbon Dioxide 20 L BUN 29 H Creatinine 1.36 H Calcium Magnesium 1.3 L Troponin I 0.440 H* Urine Protein Urine Ketones Urine Blood Urine Mucus 01/06/21 01/06/21 01/06/21 03:42 05:00 13:14 RBC Hgb Hct Plt Count Neutrophils # Lymphocytes # Lymphocytes # (Manual) Metamyelocytes # (Man) D-Dimer Sodium Carbon Dioxide BUN Creatinine Calcium Magnesium Troponin I 0.547 H* 0.345 H* Urine Protein 1+ H Urine Ketones 1+ H Urine Blood Trace H Urine Mucus Rare H 01/06/21 01/07/21 01/07/21 22:20 08:34 08:34 RBC 3.37 L Hgb 10.8 L Hct 32.3 L Plt Count 90 L Neutrophils # 8.3 H Lymphocytes # 0.4 L Lymphocytes # (Manual) Metamyelocytes # (Man) D-Dimer 1.77 H Sodium 133 L Carbon Dioxide 19 L BUN 40 H Creatinine Calcium 7.9 L Magnesium Troponin I Urine Protein Urine Ketones Urine Blood Urine Mucus 01/08/21 01/08/21 07:36 07:36 RBC 3.28 L Hgb 10.5 L Hct 31.7 L Plt Count 91 L Neutrophils # Lymphocytes # 0.6 L Lymphocytes # (Manual) Metamyelocytes # (Man) D-Dimer Sodium 135 L Carbon Dioxide 21 L BUN 32 H Creatinine Calcium 7.9 L Magnesium Troponin I Urine Protein Urine Ketones Urine Blood Urine Mucus Assessment and Plan Assessment: * Transient episode of generalized weakness with inability to get up (and he crawled down of of couch to the floor) of unknown etiology at this time possibly due to hypotension versus near syncope. On examination no focal deficits.--currently back to baseline * Hypotensive episode during this admission (as low as 82/57) * Altered mental status on presentation to the emergency that has improved possibly due to a result of fall and component of metabolic encephalopathy. * Community-acquired pneumonia * Acute kidney injury unknown baseline--resolved * Atrial fibrillation currently on Xarelto * History of hypertension * Valvular heart disease Plan: Patient nurse is getting Orthostatic vitals and if positive will defer management to cardiology team. Patient is on Xarelto 20 mg daily as well as Lipitor, gram daily at bedtime and we'll defer the dose management to the cardiology and primary team. Cardiology is on board. Avoid any further hypotensive episode we'll defer the management to the primary team. We'll defer the rest of the medical management to primary team Plan was discussed with the patient's nurse and primary attending. Thank you for the consultation. Neurology will sign off. Please reconsult if any further concerns. Jimbo Dougherty MD Neuro-Hospitalist Time with Patient: Greater than 30
--- NOTE | 2021-01-08 13:26 | P.PN ---
Subjective Progress Note Date: 01/08/21 HISTORY OF PRESENTING ILLNESS Patient is a pleasant 85-year-old male with a history of atrial fibrillation, hyperlipidemia, cigar abuse, relatively low normal blood pressure and previous pneumonia approximately 2 years ago who presents secondary to episode of falling and inability to get back up. Patient states he had been feeling fairly normal however then fell, denies any headedness or actual loss of consciousness however states he fell and was unable to get back up. He therefore started pounding on the floor and his daughter helped him get up and called EMS. Patient denies difficulty speaking however grandson states he apparently was unable to voice his concerns and was just pounding on the floor. Patient has some difficulty explaining the episode. He also states he felt like he was "paralyzed "like his body was not working. Denies any focal weakness. Apparently he had been somewhat confused most of last night when he presented however per grandson he is more alert and back to his normal self. He denies any chest pain, pressure, tightness. Denies any shortness breath. Currently he states he feels back to normal. Denies any recent fevers or chills. Chest x-ray however does show concern of right pneumonia. He states he had a history of pneumonia approximately 2-3 years ago. No recent weight loss. He normally is fairly active and is a martial arts blackballed. He goes for jogs most days and denies any decreased exercise tolerance. 01/07/2021 Patient examined this morning at the bedside. Denies chest pain or pressure. Denies SOB. Vital signs are stable. echocardiogram completed revealing ejection fraction 40-45%, mild aortic regurgitation, moderate aortic stenosis, [id number] mitral regurgitation, and mild to moderate tricuspid regurgitation. 01/08/2021 Patient examined this morning in the chair. Patient denies SOB. Denies CP. Telemetry reveals afib with controlled ventricular rate. Chest CTA negative for PE. PHYSICAL EXAMINATION Vital signs reviewed. CONSTITUTIONAL: No apparent distress. HEENT: Head is normocephalic. Pupils are equal, round. Sclerae anicteric. Mucous membranes of the mouth are moist. No JVD. No carotid bruit. CHEST EXAMINATION: Lungs diminished bilaterally with crackles noted. HEART EXAMINATION: Irregular rate and rhythm. S1, S2 heard. ABDOMEN: Soft, nontender. Positive bowel sounds. EXTREMITIES: 2+ peripheral pulses, no lower extremity edema and no calf tenderness. NEUROLOGIC EXAMINATION: Patient is awake, alert and oriented x3. ASSESSMENT 1. Fall with apparent inability to get up, unclear if related to hypotensio n/near syncope versus other. Does not appear consistent with stroke 2. Apparent altered mental status first when presenting to emergency department, improved per grandson 3. Elevated troponin, no signs of ACS 4. Bilateral infiltrates per CXR, pneumonia 5. Atrial fibrillation, appears persistent 6. Borderline blood pressures, history of low normal BP 7. Acute kidney injury, creatinine 1.36, unclear baseline 8. Valvular heart disease PLAN Continue current cardiac medications Continue telemetry monitoring Discontinue Lovenox. Resume home dose of Xarelto. Further recommendations pending patient course Nurse practitioner note has been reviewed by physician. Signing provider agrees with the documented findings, assessment, and plan of care. Objective - Vital Signs Vital signs: Vital Signs Temp 98.0 F 01/08/21 11:38 Pulse 76 01/08/21 11:38 Resp 16 01/08/21 11:38 BP 102/64 01/08/21 11:38 Pulse Ox 97 01/08/21 11:38 Intake & Output 01/07/21 01/08/21 01/08/21 18:59 06:59 18:59 Intake Total 360 700 Output Total 250 Balance 360 450 Weight 56 kg Intake: Intake, IV Titration 700 Amount Sodium Chloride 0.9% 1, 600 000 ml @ 50 mls/hr IV . Q20H [facility] Rx#:[id number] cefTRIAXone 2 gm In 100 Sodium Chloride 0.9% 50 ml @ 100 mls/hr IVPB Q24H [facility] Rx#:[id number] Oral 360 Output: Urine 250 Other: # Voids 1 # Bowel Movements 0 - Labs CBC & Chem 7: 01/08/21 07:36 01/08/21 07:36 Labs: Abnormal Lab Results - Last 24 Hours (Table) 01/07/21 01/08/21 01/08/21 Range/Units 08:34 07:36 07:36 RBC 3.28 L (4.30-5.90) m/uL Hgb 10.5 L (13.0-17.5) gm/dL Hct 31.7 L (39.0-53.0) % Plt Count 90 L 91 L (150-450) k/uL Neutrophils # 8.3 H (1.3-7.7) k/uL Lymphocytes # 0.4 L 0.6 L (1.0-4.8) k/uL Sodium 135 L (137-145) mmol/L Carbon Dioxide 21 L (22-30) mmol/L BUN 32 H (9-20) mg/dL Calcium 7.9 L (8.4-10.2) mg/dL Microbiology - Last 24 Hours (Table) 01/06/21 00:00 Blood Culture - Preliminary Blood No Growth after 48 hours 01/06/21 00:15 Blood Culture - Preliminary Blood No Growth after 48 hours
[2021-01-08] MEDS ORDERED: ACETAMINOPHEN TAB 500 MG TAB PO PRN (16:35)
[2021-01-08] MEDS ORDERED: HYDROcodone/APAP 5-325MG 1 EACH TAB PO PRN (16:35)
[2021-01-08] MEDS: SODIUM CHLORIDE 0.9% 1,000 ML IV SCH (16:37)
--- NOTE | 2021-01-08 16:56 | PN ---
PROGRESS NOTE DATE OF SERVICE: 01/08/2021 This 85-year-old gentleman who was admitted with community-acquired pneumonia is also complaining of some generalized weakness. The blood pressure is also running low. The patient had a fall, also. The patient apparently slid down along the chair and Neurology is following the patient closely. Most likely the fall was secondary to hypotension and orthostatic hypotension. CT scan of the chest showed bilateral lower lobe pneumonia. A carotid Doppler was also done which showed no significant stenosis, but atheromatous plaques were noted. Past medical history reviewed. REVIEW OF SYSTEMS: CARDIOVASCULAR SYSTEM: As mentioned earlier. RESPIRATION: As mentioned earlier. GI: As mentioned earlier. NERVOUS SYSTEM: As mentioned earlier. CURRENT MEDICATIONS: Reviewed. They include Lipitor, Zithromax, Rocephin, magnesium oxide, Xarelto, Flomax. PHYSICAL EXAMINATION: Patient is alert, oriented x3. Pulse is 70, blood pressure 103/62, respirations 16, temperature 98.2, pulse ox 98% on room air. HEENT: Conjunctivae normal. NECK: No jugular venous distention. CARDIOVASCULAR: S1, S2 muffled. RESPIRATION: Breath sounds diminished at the bases. A few scattered rhonchi and crackles. ABDOMEN: Soft, nontender. LEGS: No edema. No swelling. NERVOUS SYSTEM: Diffusely weak. LABS: Labs at this time show WBC 8.2, hemoglobin 10.9, sodium 135. ASSESSMENT: 1. Bilateral lower lobe pneumonia, possibly community-acquired, possibly Gram-negative pneumonia or aspiration. 2. Atrial fibrillation. 3. Elevated troponin of undetermined etiology. 4. Acute kidney injury. 5. Status post fall. 6. Generalized weakness and asthenia. 7. Hypertension. 8. Benign prostatic hypertrophy. 9. Mild protein-calorie malnutrition. 10.Anemia, normocytic anemia of chronic disease. 11.Mild thrombocytopenia. 12.Elevated D-dimer without any evidence of pulmonary embolism. 13.Hyponatremia. 14.Troponin elevated up to 0.345. RECOMMENDATIONS AND DISCUSSION: In this 85-year-old gentleman who presented with multiple complex medical issues, we will monitor the patient closely, continue the current medications, continue with symptomatic treatment. I would recommend [address] was negative for pulmonary embolism. I would also recommend ultrasound of the legs. Otherwise, continue the IV fluids cautiously. Supplement vitamins. Continue the antibiotics and bronchodilators. Prognosis guarded because of multiple complex medical issues. Further recommendations to follow. Bilateral thigh-high Teds. Discussed with the patient, who understands and agrees. PT/OT evaluation. MONA / ISREALN: [id number] /
[2021-01-08] MEDS ORDERED: RIVAROXABAN 20 MG TAB PO SCH (17:30)
[2021-01-08] MEDS: ATORVASTATIN 10 MG TAB PO SCH (20:33)
[2021-01-08] MEDS: TAMSULOSIN 0.4 MG CAP.ER.24H PO SCH (20:33)
[2021-01-08] MEDS ORDERED: AZITHROMYCIN 500 MG TAB PO SCH (21:00)
[2021-01-08 21:30] VITALS: RESP 18
--- NOTE | 2021-01-08 23:22 | US ---
EXAMINATION TYPE: US venous doppler duplex LE DATE OF EXAM: 01/08/2021 9:37 PM COMPARISON: NONE CLINICAL HISTORY: dvt. Swelling. Limited history from patient. SIDE PERFORMED: Bilateral TECHNIQUE: The lower extremity deep venous system is examined utilizing real time linear array sonog diann with graded compression, doppler sonography and color-flow sonography. VESSELS IMAGED: Common Femoral Vein Deep Femoral Vein Greater Saphenous Vein * Femoral Vein Popliteal Vein Small Saphenous Vein * Proximal Calf Veins (* superficial vessels) Right Leg: No evidence of DVT in veins imaged at this time. Left Leg: Internal echoes seen within distal left femoral vein. Possible chronic thrombus along vess el wall. Distal femoral vein does not appear to completely compress. Color flow seen in all veins erin ged. IMPRESSION: There is evidence for some chronic deep vein thrombosis in the left leg.
[2021-01-09 08:21] LABS: Basophils % (A) 0 %; Eosinophils % (A) 1 %; HCT 32.2 % (39.0-53.0); HGB 10.5 gm/dL (13.0-17.5); Lymphocytes # (A) 0.6 k/uL (1.0-4.8); Lymphocytes % (A) 10 %; MCHC 32.8 g/dL (31.0-37.0); MCV 97.8 fL (80.0-100.0); Mean Platelet Volume 8.7; Monocytes # (A) 0.3 k/uL (0-1.0); Monocytes % (A) 5 %; Neutrophils # (A) 4.4 k/uL (1.3-7.7); Neutrophils % (A) 82 %; Platelet Count 108 k/uL (150-450); RBC 3.29 m/uL (4.30-5.90); RDW 12.8 % (11.5-15.5); WBC 5.4 k/uL (3.8-10.6)
[2021-01-09 08:54] LABS: African American GFR (CKD) >90 (>60 ml/min/1.73 sqM); Anion Gap 3 mmol/L; Blood Urea Nitrogen 24 mg/dL (9-20); Calcium 7.9 mg/dL (8.4-10.2); Carbon Dioxide 25 mmol/L (22-30); Chloride 109 mmol/L (98-107); Glucose 107 mg/dL (74-99); Non-African American GFR(CKD) 79 (>60 ml/min/1.73 sqM); Potassium 3.5 mmol/L (3.5-5.1); Sodium 137 mmol/L (137-145)
[2021-01-09] MEDS ORDERED: MULTIVITAMINS, THERA 1 EACH TAB PO SCH (12:00)
[2021-01-09] MEDS ORDERED: FOLIC ACID 1 MG TAB PO SCH (12:00)
[2021-01-09] MEDS ORDERED: THIAMINE 100 MG TAB PO SCH (12:00)
[2021-01-09 12:29] VITALS: BP 108/57; PULSE 75; TEMP 98
--- NOTE | 2021-01-09 13:21 | P.PN ---
Subjective Progress Note Date: 01/09/21 HISTORY OF PRESENTING ILLNESS Patient is a pleasant 85-year-old male with a history of atrial fibrillation, hyperlipidemia, cigar abuse, relatively low normal blood pressure and previous pneumonia approximately 2 years ago who presents secondary to episode of falling and inability to get back up. Patient states he had been feeling fairly normal however then fell, denies any headedness or actual loss of consciousness however states he fell and was unable to get back up. He therefore started pounding on the floor and his daughter helped him get up and called EMS. Patient denies difficulty speaking however grandson states he apparently was unable to voice his concerns and was just pounding on the floor. Patient has some difficulty explaining the episode. He also states he felt like he was "paralyzed "like his body was not working. Denies any focal weakness. Apparently he had been somewhat confused most of last night when he presented however per grandson he is more alert and back to his normal self. He denies any chest pain, pressure, tightness. Denies any shortness breath. Currently he states he feels back to normal. Denies any recent fevers or chills. Chest x-ray however does show concern of right pneumonia. He states he had a history of pneumonia approximately 2-3 years ago. No recent weight loss. He normally is fairly active and is a martial arts blackballed. He goes for jogs most days and denies any decreased exercise tolerance. 01/07/2021 Patient examined this morning at the bedside. Denies chest pain or pressure. Denies SOB. Vital signs are stable. echocardiogram completed revealing ejection fraction 40-45%, mild aortic regurgitation, moderate aortic stenosis, [id number] mitral regurgitation, and mild to moderate tricuspid regurgitation. 01/08/2021 Patient examined this morning in the chair. Patient denies SOB. Denies CP. Telemetry reveals afib with controlled ventricular rate. Chest CTA negative for PE. 01/09/2021 Patient examined this morning. He denies chest pain or pressure. Denies SOB. He remains in atrial fibrillation with controlled ventricular rates. PHYSICAL EXAMINATION Vital signs reviewed. CONSTITUTIONAL: No apparent distress. HEENT: Head is normocephalic. Pupils are equal, round. Sclerae anicteric. Mucous membranes of the mouth are moist. No JVD. No carotid bruit. CHEST EXAMINATION: Lungs diminished bilaterally with crackles noted. HEART EXAMINATION: Irregular rate and rhythm. S1, S2 heard. ABDOMEN: Soft, nontender. Positive bowel sounds. EXTREMITIES: 2+ peripheral pulses, no lower extremity edema and no calf tenderne ss. NEUROLOGIC EXAMINATION: Patient is awake, alert and oriented x3. ASSESSMENT 1. Fall with apparent inability to get up, unclear if related to hypotension/near syncope versus other. Does not appear consistent with stroke 2. Apparent altered mental status first when presenting to emergency dep artment, improved per grandson 3. Elevated troponin, no signs of ACS 4. Bilateral infiltrates per CXR, pneumonia 5. Atrial fibrillation, appears persistent 6. Borderline blood pressures, history of low normal BP 7. Acute kidney injury, creatinine 1.36, unclear baseline 8. Valvular heart disease PLAN Continue current cardiac medications Continue telemetry monitoring Patient is stable from a cardiac standpoint We will sign off. Please reconsult if needed. Nurse practitioner note has been reviewed by physician. Signing provider agrees with the documented findings, assessment, and plan of care. Objective - Vital Signs Vital signs: Vital Signs Temp 98.0 F 01/09/21 12:28 Pulse 75 01/09/21 12:28 Resp 18 01/09/21 12:28 BP 108/57 01/09/21 12:28 Pulse Ox 97 01/09/21 12:28 Intake & Output 01/08/21 01/09/21 01/09/21 18:59 06:59 18:59 Intake Total 480 770 120 Output Total 400 Balance 80 770 120 Weight 51.5 kg 63 kg Intake: Intake, IV Titration 650 Amount Sodium Chloride 0.9% 1, 600 000 ml @ 50 mls/hr IV . Q20H MARICARMEN Rx#:[id number] cefTRIAXone 2 gm In 50 Sodium Chloride 0.9% 50 ml @ 100 mls/hr IVPB Q24H MARICARMEN Rx#:[id number] Oral 480 120 120 Output: Urine 400 Other: Voiding Method Urinal # Voids 1 # Bowel Movements 0 - Labs CBC & Chem 7: 01/09/21 07:59 01/09/21 07:59 Labs: Abnormal Lab Results - Last 24 Hours (Table) 01/09/21 01/09/21 Range/Units 07:59 07:59 RBC 3.29 L (4.30-5.90) m/uL Hgb 10.5 L (13.0-17.5) gm/dL Hct 32.2 L (39.0-53.0) % Plt Count 108 L (150-450) k/uL Lymphocytes # 0.6 L (1.0-4.8) k/uL Chloride 109 H (98-107) mmol/L BUN 24 H (9-20) mg/dL Glucose 107 H (74-99) mg/dL Calcium 7.9 L (8.4-10.2) mg/dL Microbiology - Last 24 Hours (Table) 01/06/21 00:00 Blood Culture - Preliminary Blood No Growth after 72 hours 01/06/21 00:15 Blood Culture - Preliminary Blood No Growth after 72 hours
[2021-01-09] MEDS ORDERED: INFLUENZA VACC HIGH-DOSE (65+) 240 MCG/0.7 ML SYRINGE IM ONE (15:19)
[2021-01-09] MEDS: PNEUMOCOCCAL VACC-PNEUMOVAX 23 25 MCG/0.5 ML VIAL IM ONE ×2 (16:27→16:28)
--- NOTE | 2021-01-09 23:28 | DS ---
DISCHARGE SUMMARY DATE OF SERVICE: 01/09/2021. FINAL DIAGNOSES: 1. Bilateral lower lobe pneumonia possibly community-acquired possibly gram-negative pneumonia or aspiration. 2. Atrial fibrillation. 3. Elevated troponin of undetermined etiology. 4. Acute kidney injury. 5. Status post fall. 6. Generalized weakness and asthenia. 7. Hypertension. 8. Benign prostatic hypertrophy. 9. Mild protein calorie malnutrition. 10.Anemia, normocytic anemia of chronic disease. 11.Mild thrombocytopenia. 12.Elevated D-dimer without any evidence of pulmonary embolism. 13.Hyponatremia. 14.Troponin elevated up to 0.3035 of undetermined significance. DISCHARGE DISPOSITION: The patient will be discharged in stable condition with guarded prognosis. HISTORY OF PRESENT ILLNESS: This 85 -year-old gentleman with a past medical history of multiple medical problems admitted with multiple problems such as include pneumonia and multiple other complex medical issues. Patient was treated in conjunction with Cardiology and the patient was treated with IV antibiotics. The patient improved significantly. The chest CTA was also reviewed. There is no evidence of pulmonary embolism. The white count is 5.3, hemoglobin 10.5. The patient is keen on going home. D-dimer was elevated and the troponin is found to be 0.035. Cardiology saw the patient. On exam, vitals stable. Cardiovascular: S1, S2. Abdomen soft. Nervous system: No focal deficits. The family is very keen on taking the patient home and the patient will be discharged in stable condition with guarded prognosis with the following advice and medications: DISCHARGE ADVICE AND MEDICATIONS: 1. Diet is cardiac diet. 2. Activity limited until followup. 3. Follow up with primary physician in 2-3 days. 4. Follow up with Cardiology as recommended. MEDICATIONS: Are as follows: 1. Flomax 0.4 q.h.s. 2. Xarelto 20 mg q.h.s. 3. Zocor 10 mg q.h.s. 4. Ceftin 500 mg p.o. b.i.d. for 3 days. 5. Folic acid 1 mg p.o. daily. 6. Multivitamins 1 p.o. daily. 7. Thiamine 100 mg p.o. daily. 8. Zithromax 500 mg q.h.s. 9. MMODL / IJN: [id number] /
--- NOTE | 2021-01-11 12:03 | CDI ---
Documentation Clarification Form Date: 01/11/2021 11:53:23 AM From: Tim Lambert Phone: Admit Date: 01/05/2021 11:59:00 PM Patient Name: Paddy Blakely Visit Number: [id number] Discharge Date: 01/09/2021 04:56:00 PM ATTENTION: The Clinical Documentation Specialists (CDI) and [facility] Coding Staff appreciate your assistance in clarifying documentation. Please respond to the clarification below the line at the bottom and electronically sign. The CDI & [facility] Coding staff will review the response and follow-up if needed. Please note: Queries are made part of the Legal Health Record. If you have any questions, please contact the author of this message via ITS. Dr. Nohemi Marquis Possible metabolic encephalopathy is documented in the consult 01/08. This is not mentioned in your discharge summary or in the last progress note. Need to know if this was ruled out. This would affect the DRG. History/Risk Factors: altered mental status, PNA, fall Clinical Indicators: Labs: EEG: CT/MRI Brain: Treatment: for PNA Consults: neurology Please check which is most appropriate below [ ] Metabolic Encephalopathy [ ] Septic Encephalopathy [ ] Toxic Encephalopathy [ ] Traumatic Encephalopathy [ ] Other, please specify [ ] Unable to determine [ ] other encephalopathy [ ] no diagnosis of encephalopathy-altered mental status only Metabolic Encephalopathy MTDD
== END 2021-01-09 16:56 | disposition home or self-care (01) | DRG 177 ==
LOC: EC 22:00 → 3SCARD 23:59
PROVIDERS: ADMIT Internal Medicine; ATTEND Internal Medicine
DX: J15.6 Pneumonia due to other Gram-negative bacteria (principal); G93.41 Metabolic encephalopathy; E44.1 Mild protein-calorie malnutrition; E87.1 Hypo-osmolality and hyponatremia; N17.9 Acute kidney failure, unspecified; D63.8 Anemia in other chronic diseases classified elsewhere; D69.6 Thrombocytopenia, unspecified; E78.5 Hyperlipidemia, unspecified; H91.90 Unspecified hearing loss, unspecified ear; I08.2 Rheumatic disorders of both aortic and tricuspid valves; I10 Essential (primary) hypertension; I25.10 Atherosclerotic heart disease of native coronary artery without angina pectoris; I48.91 Unspecified atrial fibrillation; I95.1 Orthostatic hypotension; N40.0 Benign prostatic hyperplasia without lower urinary tract symptoms; Z20.822 Contact with and (suspected) exposure to COVID-19; W19.XXXA Unspecified fall, initial encounter; Z79.01 Long term (current) use of anticoagulants; Z79.899 Other long term (current) drug therapy; Z87.01 Personal history of pneumonia (recurrent); R77.8 Other specified abnormalities of plasma proteins
CPT/HCPCS: 36415; 70450; 71045; 71275; 72125; 80048; 80053; 81001; 82533; 83735; 84484; 85025; 85379; 87040; 87635; 90732; 93005; 93306; 93880; 93970; 99285

== ENCOUNTER 2022-09-20 13:09 | Observation (INO) | payer MEDICARE ==
--- NOTE | 2022-09-20 13:28 | ED ---
General Adult HPI - General Chief complaint: Shortness of Breath Stated complaint: ROBIN Time Seen by Provider: 09/20/22 13:17 Source: patient, family, RN notes reviewed Mode of arrival: wheelchair Limitations: no limitations - History of Present Illness Initial comments: Patient is a pleasant 87 year old male presents emergency Department with shortness of breath. Onset of symptoms was today. Symptoms are with exertion. No dyspnea at rest. No chest pain. Patient has felt a little bit lightheaded. Patient had a fall a week ago without significant injury. No fever. No cough. - Related Data Home Medications Medication Instructions Recorded Confirmed Simvastatin [Zocor] 20 mg PO HS 01/05/21 01/05/21 Tamsulosin HCl [Flomax] 0.4 mg PO HS 01/05/21 01/05/21 Rivaroxaban [Xarelto] 20 mg PO HS 01/06/21 01/06/21 Previous Rx's Medication Instructions Recorded Azithromycin [Zithromax] 500 mg PO HS 3 Days #3 tab 01/09/21 Folic Acid 1 mg PO DAILY@1200 #30 tab 01/09/21 Multivitamins, Thera [Multivitamin 1 each PO DAILY@1200 #30 tab 01/09/21 (formulary)] Thiamine [Vitamin B-1] 100 mg PO DAILY@1200 #30 tab 01/09/21 cefUROXime axetiL [Ceftin] 500 mg PO BID 3 Days #6 tab 01/09/21 Allergies Allergy/AdvReac Type Severity Reaction Status Date / Time No Known Allergies Allergy Verified 09/20/22 13:15 Review of Systems ROS Statement: Those systems with pertinent positive or pertinent negative responses have been documented in the HPI. ROS Other: All systems not noted in ROS Statement are negative. Constitutional: Denies: fever Eyes: Denies: eye pain ENT: Denies: ear pain Respiratory: Reports: as per HPI, dyspnea. Denies: cough Cardiovascular: Denies: chest pain Endocrine: Reports: fatigue Gastrointestinal: Denies: abdominal pain Genitourinary: Denies: urgency Musculoskeletal: Denies: back pain Skin: Denies: rash Neurological: Denies: weakness Past Medical History Past Medical History: Hyperlipidemia History of Any Multi-Drug Resistant Organisms: None Reported Past Surgical History: No Surgical Hx Reported Additional Past Surgical History / Comment(s): bilateral knee surgery Additional Past Anesthesia/Blood Transfusion Reaction / Comment(s): Pt states he has never had a blood transfusion Past Psychological History: No Psychological Hx Reported Smoking Status: Never smoker Past Alcohol Use History: None Reported Past Drug Use History: None Reported General Exam Limitations: no limitations General appearance: alert, in no apparent distress Head exam: Present: normocephalic Eye exam: Present: normal appearance, PERRL, EOMI ENT exam: Present: normal oropharynx Neck exam: Present: normal inspection. Absent: tenderness, meningismus Respiratory exam: Present: rhonchi. Absent: respiratory distress Cardiovascular Exam: Present: regular rate, normal rhythm GI/Abdominal exam: Present: soft. Absent: tenderness Extremities exam: Present: normal inspection. Absent: pedal edema, calf tenderness Neurological exam: Present: alert, CN II-XII intact. Absent: motor sensory deficit Expanded Cranial nerves: EOM's Intact: Normal Motor strength exam: RUE: 5, LUE: 5, RLE: 5, LLE: 5 Eye Response: (4) open spontaneously Motor Response: (6) obeys commands Verbal Response: (5) oriented Psychiatric exam: Present: normal affect, normal mood Skin exam: Present: normal color Course Vital Signs 09/20/22 09/20/22 09/20/22 13:12 13:26 14:16 Temperature 98 F Pulse Rate 103 H 80 Respiratory 20 21 19 Rate Blood Pressure 96/67 94/70 O2 Sat by Pulse 98 98 Oximetry Medical Decision Making - Medical Decision Making Was pt. sent in by a medical professional or institution (, PA, ENDLESS TRACK VEHICLE MECHANIC, urgent care, hospital, or shelter...) When possible be specific @ -No Did you speak to anyone other than the patient for history (EMS, parent, family, police, friend...)? What history was obtained from this source @ -Family is present to help provide history and infact provides majority of history. Did you review nursing and triage notes (agree or disagree)? Why? @ -I reviewed and agree with nursing and triage notes Were old charts reviewed (outside hosp., previous admission, EMS record, old EKG, old radiological studies, urgent care reports/EKG's, shelter records)? Report findings @ -No old charts were reviewed Differential Diagnosis (chest pain, altered mental status, abdominal pain women, abdominal pain men, vaginal bleeding, weakness, fever, dyspnea, syncope, headache, dizziness, GI bleed, back pain, seizure, CVA, palpatations, mental health, musculoskeletal)? @ -Differential Dyspnea: Coronary syndrome, arrhythmia, tamponade, asthma, COPD, pulmonary embolism, pneumonia, pneumothorax, pulmonary effusion, anaphylaxis, diabetic ketoacidosis, flailed chest, pulmonary contusion, diaphragmatic rupture, anemia, neuromuscular, this is not meant to be an all-inclusive list. EKG interpreted by me (3pts min.). @ -As above X-rays interpreted by me (1pt min.). @ -Chest x-ray shows small bilateral effusions CT interpreted by me (1pt min.). @ -None done U/S interpreted by me (1pt. min.). @ -None done What testing was considered but not performed or refused? (CT, X-rays, U/S, labs)? Why? @ -None What meds were considered but not given or refused? Why? @ -None Did you discuss the management of the patient with other professionals (professionals i.e. , PA, ENDLESS TRACK VEHICLE MECHANIC, lab, RT, psych nurse, nursing home social worker, head turbine operator, teacher, accounts officer, casework specialist)? Give summary @ -Case was discussed with Dr. henson, who will admit cover Dr. Garcia Was smoking cessation discussed for >3mins.? @ -No Was critical care preformed (if so, how long)? @ -No Were there social determinants of health that impacted care today? How? (Homelessness, low income, unemployed, alcoholism, drug addiction, transportation, low edu. Level, literacy, decrease access to med. care, [place] [facility], rehab)? @ -No Was there de-escalation of care discussed even if they declined (Discuss DNR or withdrawal of care, Hospice)? DNR status @ -No What co-morbidities impacted this encounter? (DM, HTN, Smoking, COPD, CAD, Cancer, CVA, ARF, Chemo, Hep., AIDS, mental health diagnosis, sleep apnea, morbid obesity)? @ -None Was patient admitted / discharged? Hospital course, mention meds given and route, prescriptions, significant lab abnormalities, going to OR and other pertinent info. @ -Patient reevaluated. Patient and family updated. Patient presents with exertional dyspnea. Patient has CHF base of lab work and mild chest x-ray changes. Case was discussed with Dr. henson and patient will be admitted with cardiology consult Undiagnosed new problem with uncertain prognosis? @ -No Drug Therapy requiring intensive monitoring for toxicity (Heparin, Nitro, Insulin, Cardizem)? @ -No Were any procedures done? @ -No Diagnosis/symptom? @ -Exertional dyspnea, CHF Acute, or Chronic, or Acute on Chronic? @ -Acute, acute Uncomplicated (without systemic symptoms) or Complicated (systemic symptoms)? @ -default Side effects of treatment? @ -No Exacerbation, Progression, or Severe Exacerbation? @ -No Poses a threat to life or bodily function? How? (Chest pain, USA, VT, pneumonia, PE, COPD, DKA, ARF, appy, cholecystitis, CVA, Diverticulitis, Homicidal, Suicidal, threat to staff... and all critical care pts) @ -No - Lab Data Result diagrams: 09/20/22 13:35 09/20/22 13:35 Lab Results 09/20/22 09/20/22 09/20/22 Range/Units 13:35 13:35 13:35 WBC 6.1 (3.8-10.6) k/uL RBC 3.82 L (4.30-5.90) m/uL Hgb 12.4 L (13.0-17.5) gm/dL Hct 36.4 L (39.0-53.0) % MCV 95.3 (80.0-100.0) fL MCH 32.4 (25.0-35.0) pg MCHC 34.0 (31.0-37.0) g/dL RDW 14.0 (11.5-15.5) % Plt Count 116 L (150-450) k/uL MPV 8.7 Neutrophils % 80 % Lymphocytes % 10 % Monocytes % 7 % Eosinophils % 2 % Basophils % 0 % Neutrophils # 4.9 (1.3-7.7) k/uL Lymphocytes # 0.6 L (1.0-4.8) k/uL Monocytes # 0.4 (0-1.0) k/uL Eosinophils # 0.1 (0-0.7) k/uL Basophils # 0.0 (0-0.2) k/uL PT 16.6 H (9.0-12.0) sec INR 1.7 H (<1.2) APTT 35.4 H (22.0-30.0) sec D-Dimer 0.52 (<0.60) mg/L FEU Sodium 136 L (137-145) mmol/L Potassium 4.5 (3.5-5.1) mmol/L Chloride 106 (98-107) mmol/L Carbon Dioxide 21 L (22-30) mmol/L Anion Gap 9 mmol/L BUN 33 H (9-20) mg/dL Creatinine 1.35 H (0.66-1.25) mg/dL Est GFR (CKD-EPI)AfAm 55 (>60 ml/min/1.73 sqM) Est GFR (CKD-EPI)NonAf 47 (>60 ml/min/1.73 sqM) Glucose 108 H (74-99) mg/dL Plasma Lactic Acid Herbert (0.7-2.0) mmol/L Calcium 8.4 (8.4-10.2) mg/dL Magnesium 1.8 (1.6-2.3) mg/dL Total Bilirubin 1.1 (0.2-1.3) mg/dL AST 30 (17-59) U/L ALT 17 (4-49) U/L Alkaline Phosphatase 89 (38-126) U/L Troponin I (0.000-0.034) ng/mL NT-Pro-B Natriuret Pep 8960 pg/mL Total Protein 6.4 (6.3-8.2) g/dL Albumin 3.3 L (3.5-5.0) g/dL Coronavirus (PCR) (Not Detectd) 09/20/22 09/20/22 09/20/22 Range/Units 13:35 13:35 13:35 WBC (3.8-10.6) k/uL RBC (4.30-5.90) m/uL Hgb (13.0-17.5) gm/dL Hct (39.0-53.0) % MCV (80.0-100.0) fL MCH (25.0-35.0) pg MCHC (31.0-37.0) g/dL RDW (11.5-15.5) % Plt Count (150-450) k/uL MPV Neutrophils % % Lymphocytes % % Monocytes % % Eosinophils % % Basophils % % Neutrophils # (1.3-7.7) k/uL Lymphocytes # (1.0-4.8) k/uL Monocytes # (0-1.0) k/uL Eosinophils # (0-0.7) k/uL Basophils # (0-0.2) k/uL PT (9.0-12.0) sec INR (<1.2) APTT (22.0-30.0) sec D-Dimer (<0.60) mg/L FEU Sodium (137-145) mmol/L Potassium (3.5-5.1) mmol/L Chloride (98-107) mmol/L Carbon Dioxide (22-30) mmol/L Anion Gap mmol/L BUN (9-20) mg/dL Creatinine (0.66-1.25) mg/dL Est GFR (CKD-EPI)AfAm (>60 ml/min/1.73 sqM) Est GFR (CKD-EPI)NonAf (>60 ml/min/1.73 sqM) Glucose (74-99) mg/dL Plasma Lactic Acid Herbert 1.4 (0.7-2.0) mmol/L Calcium (8.4-10.2) mg/dL Magnesium (1.6-2.3) mg/dL Total Bilirubin (0.2-1.3) mg/dL AST (17-59) U/L ALT (4-49) U/L Alkaline Phosphatase (38-126) U/L Troponin I 0.020 (0.000-0.034) ng/mL NT-Pro-B Natriuret Pep pg/mL Total Protein (6.3-8.2) g/dL Albumin (3.5-5.0) g/dL Coronavirus (PCR) Not Detected (Not Detectd) Disposition Clinical Impression: Congestive heart failure Disposition: ADMITTED IP TO THIS HOSP Is patient prescribed a controlled substance at d/c from ED?: No Referrals: Luis Alberto Garcia MD [Primary Care Provider] - 1-2 days Time of Disposition: 14:33
[2022-09-20 13:46] LABS: Basophils % (A) 0 %; Eosinophils # (A) 0.1 k/uL (0-0.7); Eosinophils % (A) 2 %; HCT 36.4 % (39.0-53.0); HGB 12.4 gm/dL (13.0-17.5); Lymphocytes # (A) 0.6 k/uL (1.0-4.8); Lymphocytes % (A) 10 %; MCH 32.4 pg (25.0-35.0); MCV 95.3 fL (80.0-100.0); Mean Platelet Volume 8.7; Monocytes # (A) 0.4 k/uL (0-1.0); Monocytes % (A) 7 %; Neutrophils # (A) 4.9 k/uL (1.3-7.7); Neutrophils % (A) 80 %; Platelet Count 116 k/uL (150-450); RBC 3.82 m/uL (4.30-5.90); WBC 6.1 k/uL (3.8-10.6)
--- NOTE | 2022-09-20 14:01 | XR ---
EXAMINATION TYPE: XR chest 2V DATE OF EXAM: 09/20/2022 1:52 PM COMPARISON: Chest radiographs from 01/06/2021, CTA chest 01/07/2021 TECHNIQUE: XR chest 2V Frontal and lateral views of the chest. CLINICAL INDICATION:Male, 87 years old with history of difficulty breathing; FINDINGS: Lungs/Pleura: Trace bilateral pleural effusions with associated atelectasis. Hyperinflation. Chronic senescent parenchymal change. Pulmonary vascularity: Unremarkable. Heart/mediastinum: Cardiomediastinal silhouette is enlarged and stable. Atherosclerotic calcificatio ns are seen in the aorta. Musculoskeletal: No acute osseous pathology. Multilevel degenerative disc disease. IMPRESSION: COPD changes with cardiomegaly and trace bilateral pleural effusions. No focal consolidation.
[2022-09-20 14:02] LABS: INR 1.7 (<1.2); NT-Pro-B-Type Natriuretic Pept 8960 pg/mL; Partial Thromboplastin Time 35.4 sec (22.0-30.0); Prothrombin Time 16.6 sec (9.0-12.0)
[2022-09-20 14:22] LABS: ALT 17 U/L (4-49); AST 30 U/L (17-59); African American GFR (CKD) 55 (>60 ml/min/1.73 sqM); Albumin 3.3 g/dL (3.5-5.0); Alkaline Phosphatase 89 U/L (38-126); Anion Gap 9 mmol/L; Blood Urea Nitrogen 33 mg/dL (9-20); Calcium 8.4 mg/dL (8.4-10.2); Carbon Dioxide 21 mmol/L (22-30); Chloride 106 mmol/L (98-107); Glucose 108 mg/dL (74-99); Magnesium 1.8 mg/dL (1.6-2.3); Non-African American GFR(CKD) 47 (>60 ml/min/1.73 sqM); Potassium 4.5 mmol/L (3.5-5.1); Sodium 136 mmol/L (137-145); Total Bilirubin 1.1 mg/dL (0.2-1.3); Total Protein 6.4 g/dL (6.3-8.2)
[2022-09-20] MEDS ORDERED: ASPIRIN 325 MG TAB PO STA (14:34)
[2022-09-20] MEDS ORDERED: FUROSEMIDE 10 MG/ML 4 ML VIAL IV SCH (14:45)
[2022-09-20] MEDS ORDERED: FUROSEMIDE 10 MG/ML 2 ML VIAL IV ONE (15:07)
--- NOTE | 2022-09-20 15:40 | P.HPIM ---
History of Present Illness This is a pleasant 87 years old male with past medical history multiple medical problems as below Presents with dyspnea of 2-3 days duration as per family at bedside, patient has to sit down after walking short distance. He has some mild cough. No chest pain. As per family patient smokes about one cigar per day and he was counseled to quit but he declines and he declines nicotine patch. However patient when I saw him and emergency room was lying in bed comfortable, he does not look significant overload. He denies dyspnea orthopnea breast. No chest pain. No coughing. No other complaints. No urinary or bladder complaints. Is saturating 98% On room air. Rest of vital stable CBC showed mild anemia. D-dimer -0.5. INR is 1.7. creatinine 1.3. ProBNP is 8960 Chest x-ray COPD changes with cardiomegaly chest bilateral pleural effusion. No focal consolidation Patient admitted with cardiology consult and was started on aspirin 325 mg and Lasix 40 mg twice daily. I would add breathing treatment and steroids Review of Systems Review of systems CONSTITUTIONAL: No fever, no malaise, no fatigue. HEENT: No recent visual problems or hearing problems. Denied any sore throat. CARDIOVASCULAR: No orthopnea, PND, no palpitations, no syncope. PULMONARY: No chest wall tendernessINAL: No diarrhea, no nausea, no vomiting, no abdominal pain. Normoactive bowel sounds. NEUROLOGICAL: No headaches, no weakness, no numbness. HEMATOLOGICAL: Denies any bleeding or petechiae. GENITOURINARY: Denies any burning micturition, frequency, or urgency. MUSCULOSKELETAL/RHEUMATOLOGICAL: Denies any joint pain, swelling, or any muscle pain. ENDOCRINE: Denies any polyuria or polydipsia. Past Medical History Past Medical History: Hyperlipidemia History of Any Multi-Drug Resistant Organisms: None Reported Past Surgical History: No Surgical Hx Reported Additional Past Surgical History / Comment(s): bilateral knee surgery Additional Past Anesthesia/Blood Transfusion Reaction / Comment(s): Pt states he has never had a blood transfusion Past Psychological History: No Psychological Hx Reported Smoking Status: Never smoker Past Alcohol Use History: None Reported Past Drug Use History: None Reported Medications and Allergies Home Medications Medication Instructions Recorded Confirmed Type Tamsulosin HCl [Flomax] 0.4 mg PO DAILY 01/05/21 09/20/22 History Rivaroxaban [Xarelto] 20 mg PO HS 01/06/21 09/20/22 History Ferrous Sulfate [Feosol] 325 mg PO DAILY 09/20/22 09/20/22 History Multivit-Min/FA/Lycopen/Lutein 1 tab PO DAILY 09/20/22 09/20/22 History [Centrum Silver Men Tablet] Simvastatin [Zocor] 10 mg PO HS 09/20/22 09/20/22 History Allergies Allergy/AdvReac Type Severity Reaction Status Date / Time No Known Allergies Allergy Verified 09/20/22 14:55 Physical Exam Vitals: Vital Signs Temp Pulse Resp BP Pulse Ox 09/20/22 15:02 89 17 100/65 97 09/20/22 14:16 80 19 94/70 98 09/20/22 13:26 21 09/20/22 13:12 98 F 103 H 20 96/67 98 Intake and Output 09/20/22 09/20/22 09/20/22 06:59 14:59 22:59 Other: Weight 63.503 kg GENERAL: The patient is alert and oriented x3, not in any acute distress. Well developed, well nourished. HEENT: Pupils are round and equally reacting to light. EOMI. No scleral icterus. No conjunctival pallor. Normocephalic, atraumatic. No pharyngeal erythema. No thyromegaly. CARDIOVASCULAR: S1 and S2 present. No murmurs, rubs, or gallops. PULMONARY: Chest is clear to auscultation, no wheezing , no crackles. ABDOMEN: Soft, nontender, nondistended, normoactive bowel sounds. No palpable organomegaly. MUSCULOSKELETAL: No joint swelling or deformity. EXTREMITIES: No cyanosis, clubbing, or pedal edema. NEUROLOGICAL: Gross neurological examination did not reveal any focal deficits. SKIN: No rashes. no petechiae. Results CBC & Chem 7: 09/20/22 13:35 09/20/22 13:35 Labs: Abnormal Lab Results - Last 24 Hours (Table) 09/20/22 09/20/22 09/20/22 Range/Units 13:35 13:35 13:35 RBC 3.82 L (4.30-5.90) m/uL Hgb 12.4 L (13.0-17.5) gm/dL Hct 36.4 L (39.0-53.0) % Plt Count 116 L (150-450) k/uL Lymphocytes # 0.6 L (1.0-4.8) k/uL PT 16.6 H (9.0-12.0) sec INR 1.7 H (<1.2) APTT 35.4 H (22.0-30.0) sec Sodium 136 L (137-145) mmol/L Carbon Dioxide 21 L (22-30) mmol/L BUN 33 H (9-20) mg/dL Creatinine 1.35 H (0.66-1.25) mg/dL Glucose 108 H (74-99) mg/dL Albumin 3.3 L (3.5-5.0) g/dL Assessment and Plan Assessment: Acute dyspnea and suspected to combination of CHF and COPD exacerbation Mild to moderate calories and protein malnutrition Paroxysmal atrial fibrillation on Xarelto History of valvular heart disease Plan: continue with IV Lasix Monitor creatinine and input and output Start Solu-Medrol Cardiology consult Labs and medication were reviewed.. Continue same treatment. Continue with symptomatic treatment. Resume home medication. Monitor labs and vitals. DVT and GI prophylaxis. Further recommendations as per clinical course of the patient DVT prophylaxis: Subcutaneous heparin GI Prophylaxis: Pepcid possible discharge in 24-48 hours
[2022-09-20] MEDS: methylPREDNISolone SOD SUCCI 40 MG/ML 1 ML VIAL IV SCH (15:51)
[2022-09-20 17:09] VITALS: RESP 16
[2022-09-20] MEDS: FUROSEMIDE 10 MG/ML 4 ML VIAL IV SCH (20:06)
[2022-09-20] MEDS ORDERED: RIVAROXABAN 15 MG TAB PO SCH (21:00)
[2022-09-20] MEDS ORDERED: FAMOTIDINE 20 MG/2 ML VIAL IV SCH (21:00)
[2022-09-20] MEDS ORDERED: HEPARIN SODIUM,PORCINE/PF 5,000 UNIT/0.5 ML SYRINGE SQ SCH (21:00)
[2022-09-21] MEDS: methylPREDNISolone SOD SUCCI 40 MG/ML 1 ML VIAL IV SCH ×2 (01:14→08:49)
[2022-09-21 08:43] VITALS: BP 99/58; PULSE 77; TEMP 97.6
[2022-09-21] MEDS: FUROSEMIDE 10 MG/ML 4 ML VIAL IV SCH (08:49)
[2022-09-21] MEDS ORDERED: FERROUS SULFATE 325 MG TAB PO SCH (09:00)
[2022-09-21] MEDS ORDERED: ASPIRIN 325 MG TAB PO SCH (09:00)
[2022-09-21] MEDS ORDERED: TAMSULOSIN 0.4 MG CAP.ER.24H PO SCH (09:00)
[2022-09-21 09:49] LABS: BUN/Creat Ratio 23.07 Ratio (12.00-20.00); Blood Urea Nitrogen 32.3 mg/dL (9.0-27.0); Calcium 8.8 mg/dL (8.7-10.3); Carbon Dioxide 19.7 mmol/L (21.6-31.8); Chloride 106 mmol/L (96-109); Glucose 146 mg/dL (70-110); Potassium 4.6 mmol/L (3.5-5.5); Sodium 142 mmol/L (135-145)
[2022-09-21 09:51] LABS: Basophils # (A) 0.01 X 10*3/uL (0.00-0.10); Basophils % (A) 0.3 %; Eosinophils # (A) 0 X 10*3/uL (0.04-0.35); Eosinophils % (A) 0 %; HCT 38.1 % (39.6-50.0); HGB 12.1 d/dL (12.0-15.0); Immature Grans, Automated 0 %; Lymphocytes # (A) 0.26 X 10*3/uL (0.90-5.00); Lymphocytes % (A) 7.3 %; MCH 30.3 pg (27.0-32.0); MCHC 31.8 d/dL (32.0-37.0); MCV 95.3 FL (80.0-97.0); Mean Platelet Volume 11.3 FL (9.5-12.2); Monocytes # (A) 0.04 X 10*3/uL (0.20-1.00); Monocytes % (A) 1.1 %; NRBC Per 100 WBC 0 X 10*3/uL (0.00-0.01); Neutrophils # (A) 3.25 X 10*3/uL (1.80-7.70); Neutrophils % (A) 91.3 %; Platelet Count 155 X 10*3/uL (140-440); RDW 13.6 % (11.5-14.5); WBC 3.56 X 10*3/uL (4.50-10.00)
--- NOTE | 2022-09-21 11:20 | P.CRDCN ---
History of Present Illness History of present illness: HISTORY OF PRESENTING ILLNESS Patient is a pleasant 85-year-old male with a history of atrial fibrillation, hyperlipidemia, cigar abuse, relatively low normal blood pressure and previous pneumonia approximately 4 years ago who presents secondary to episode of falling. He did have a similar episode back in 2020. He states he was walking and feeling fairly well however started get off balance and somewhat lightheaded and felt himself falling forward. He denies any actual syncope. He felt back to his normal self however presented to emergency department. Currently he denies any chest pain or shortness breath. He has been monitored on telemetry with A. fib with controlled ventricular rates with greatest +2.1 seconds. Troponins normal. REVIEW OF SYSTEMS At the time of my exam: CONSTITUTIONAL: Denies fever or chills. CARDIOVASCULAR: No chest pain, shortness of breath, orthopnea, PND or palpitations. RESPIRATORY: Denies cough. GASTROINTESTINAL: Denies abdominal pain, diarrhea, constipation, nausea or vomiting. MUSCULOSKELETAL: Denies myalgias. NEUROLOGIC: Denies numbness, tingling or weakness. ENDOCRINE: Denies fatigue, weight change, polydipsia or polyurina. GENITOURINARY: Denies burning, hematuria or urgency with micturation. HEMATOLOGIC: Denies history of anemia or bleeding. PHYSICAL EXAMINATION Vital signs reviewed. CONSTITUTIONAL: No apparent distress. HEENT: Head is normocephalic. Pupils are equal, round. Sclerae anicteric. Mucous membranes of the mouth are moist. No JVD. No carotid bruit. CHEST EXAMINATION: CTAB HEART EXAMINATION: +irregular rate and rhythm. S1, S2 heard. No murmurs, gallops or rub. ABDOMEN: Soft, nontender. Positive bowel sounds. EXTREMITIES: 2+ peripheral pulses, no lower extremity edema and no calf tenderness. NEUROLOGIC EXAMINATION: Patient is awake, alert and oriented x3. ASSESSMENT 1. Fall unclear balance issue vs near syncope 2. Peristent atrial fibrillation, CVR 3. Borderline blood pressures, history of low normal BP 4. CKD PLAN Patient with a fall and describes is somewhat as losing his balance and falling forward. He has had a number of these issues in the past however. Currently no significant tachycardia or bradycardia arrhythmia to explain this. Discussed further at that monitor or possible loop recorder. Patient currently appears stable and no significant murmurs and previous workup for similar episode 2 years ago was unrevealing. Appears stable for discharge home outpatient event monitor. 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 History of Any Multi-Drug Resistant Organisms: None Reported Past Surgical History: No Surgical Hx Reported Additional Past Surgical History / Comment(s): bilateral knee surgery Additional Past Anesthesia/Blood Transfusion Reaction / Comment(s): Pt states he has never had a blood transfusion Past Psychological History: No Psychological Hx Reported Smoking Status: Never smoker Past Alcohol Use History: None Reported Past Drug Use History: None Reported Medications and Allergies Home Medications Medication Instructions Recorded Confirmed Type Tamsulosin HCl [Flomax] 0.4 mg PO DAILY 01/05/21 09/20/22 History Rivaroxaban [Xarelto] 20 mg PO HS 01/06/21 09/20/22 History Ferrous Sulfate [Feosol] 325 mg PO DAILY 09/20/22 09/20/22 History Multivit-Min/FA/Lycopen/Lutein 1 tab PO DAILY 09/20/22 09/20/22 History [Centrum Silver Men Tablet] Simvastatin [Zocor] 10 mg PO HS 09/20/22 09/20/22 History Allergies Allergy/AdvReac Type Severity Reaction Status Date / Time No Known Allergies Allergy Verified 09/20/22 14:55 Physical Exam Vitals: Vital Signs Temp Pulse Pulse Resp BP BP BP 09/21/22 08:35 09/21/22 07:00 97.6 F 77 16 99/58 09/21/22 02:00 97.3 F L 89 16 90/59 09/20/22 19:00 97.3 F L 115 H 16 91/60 09/20/22 17:09 98.2 F 87 16 99/70 09/20/22 16:22 98.2 F 86 17 101/72 09/20/22 15:02 89 17 100/65 09/20/22 14:16 80 19 94/70 09/20/22 13:26 21 09/20/22 13:12 98 F 103 H 20 96/67 Pulse Ox FiO2 09/21/22 08:35 98 21 09/21/22 07:00 96 09/21/22 02:00 98 09/20/22 19:00 97 09/20/22 17:09 98 09/20/22 16:22 98 09/20/22 15:02 97 09/20/22 14:16 98 09/20/22 13:26 09/20/22 13:12 98 Intake and Output 09/20/22 09/21/22 09/21/22 22:59 06:59 14:59 Other: # Voids 1 1 Weight 63.503 kg 56.7 kg Results 09/21/22 04:20 09/21/22 04:20 Cardiac Enzymes 09/20/22 09/20/22 09/20/22 Range/Units 13:35 13:35 15:52 AST 30 (17-59) U/L Troponin I 0.020 0.023 (0.000-0.034) ng/mL 09/20/22 Range/Units 19:45 AST (17-59) U/L Troponin I 0.032 (0.000-0.034) ng/mL Coagulation 09/20/22 Range/Units 13:35 PT 16.6 H (9.0-12.0) sec APTT 35.4 H (22.0-30.0) sec CBC 09/20/22 09/21/22 Range/Units 13:35 04:20 WBC 6.1 3.56 L (3.8-10.6) k/uL RBC 3.82 L 4.00 L (4.30-5.90) m/uL Hgb 12.4 L 12.1 (13.0-17.5) gm/dL Hct 36.4 L 38.1 L (39.0-53.0) % Plt Count 116 L 155 (150-450) k/uL Comprehensive Metabolic Panel 09/20/22 09/21/22 Range/Units 13:35 04:20 Sodium 136 L 142 (137-145) mmol/L Potassium 4.5 4.6 (3.5-5.1) mmol/L Chloride 106 106 (98-107) mmol/L Carbon Dioxide 21 L 19.7 L (22-30) mmol/L BUN 33 H 32.3 H (9-20) mg/dL Creatinine 1.35 H 1.4 (0.66-1.25) mg/dL Glucose 108 H 146 H (74-99) mg/dL Calcium 8.4 8.8 (8.4-10.2) mg/dL AST 30 (17-59) U/L ALT 17 (4-49) U/L Alkaline Phosphatase 89 (38-126) U/L Total Protein 6.4 (6.3-8.2) g/dL Albumin 3.3 L (3.5-5.0) g/dL Current Medications Generic Name Dose Route Start Last Admin Trade Name Sixto PRN Reason Stop Dose Admin Aspirin 325 mg 09/21/22 09:00 09/21/22 08:49 Aspirin 325 Mg Tab PO 325 mg DAILY MARICARMEN Administration Famotidine 20 mg 09/21/22 21:00 Famotidine 20 Mg Tab PO HS MRAICARMEN Ferrous Sulfate 325 mg 09/21/22 09:00 09/21/22 08:49 Ferrous Sulfate 325 Mg Tab PO 325 mg DAILY MARICARMEN Administration Furosemide 40 mg 09/20/22 21:00 09/21/22 08:49 Furosemide 10 Mg/Ml 4 Ml Vial IV 40 mg Q12HR MARICARMEN Administration Methylprednisolone Sodium Succinate 40 mg 09/20/22 16:00 09/21/22 08:49 Methylprednisolone Sod Succi 40 Mg/Ml 1 Ml Vial IV 40 mg Q8HR MARICARMEN Administration Nitroglycerin 0.5 inch 09/21/22 18:00 Nitroglycerin Oint 1 Inch/Gm Packet TOPICAL QID MARICARMEN Rivaroxaban 15 mg 09/20/22 21:00 09/20/22 20:06 Rivaroxaban 15 Mg Tab PO 15 mg HS MARICARMEN Administration Protocol Tamsulosin HCl 0.4 mg 09/21/22 09:00 09/21/22 08:49 Tamsulosin 0.4 Mg Cap.Er.24h PO 0.4 mg DAILY MARICARMEN Administration Intake and Output 09/20/22 09/21/22 09/21/22 22:59 06:59 14:59 Other: # Voids 1 1 Weight 63.503 kg 56.7 kg 09/21/22 04:20 09/21/22 04:20
[2022-09-21] MEDS ORDERED: NITROGLYCERIN OINT 1 INCH/GM PACKET TOPICAL SCH (18:00)
[2022-09-21] MEDS ORDERED: FAMOTIDINE 20 MG TAB PO SCH (21:00)
--- NOTE | 2022-09-23 11:49 | CDI ---
Documentation Clarification Form Date: 09/23/22 From: Sarah Valdez Admit Date: 09/21/2022 06:20:00 AM Patient Name: Paddy Blakely Visit Number: [id number] Discharge Date: 09/21/2022 01:50:00 PM ATTENTION: The Clinical Documentation Specialists (CDI) and [facility] Coding Staff appreciate your assistance in clarifying documentation. Please respond to the clarification below the line at the bottom and electronically sign. The CDI & [facility] Coding staff will review the response and follow-up if needed. Please note: Queries are made part of the Legal Health Record. If you have any questions, please contact the author of this message via ITS. Dr. Agrawal E Sheet, Your patient has the documented diagnosis of unspecified CHF in the ED Note ane H&P. Additional information regarding the [type, acuity] of CHF is requested. History/Risk Factors: Hypertensive heart disease with CHF & CKD, PAF, light smoker Clinical Indicators: Presents withdyspneaof 2-3 days duration as per family at bedside, patient has to sit down after walking short distance. He has some mildcough.Nochest pain. As per family patientsmokesabout one cigar per day and he was counseled to quit but he declines and hedeclinesnicotine patch. VS/Pulse OX: T 98, P 103, R 20, BP 96/67, O2Sat 98 BNP: 8960 01/07/21 Echocardiogram Results: EF between 40-45% Chest X Ray: COPDchanges withcardiomegalyand tracebilateral pleural effusions. Treatment: IV Lasix, IV Solu-Medrol In your professional opinion, can you please clarify the [acuity and type] of CHF if known? [ ] Acute Systolic Heart Failure (reduced EF) [ ] Chronic Systolic Heart Failure (reduced EF) [ ] Acute on Chronic Systolic Heart Failure (reduced EF) [ ] Acute Diastolic Heart Failure (preserved EF) [ ] Chronic Diastolic Heart Failure (preserved EF) [ ] Acute on Chronic Diastolic Heart Failure (preserved EF) [ ] Acute Systolic & Diastolic Heart Failure [ ] Chronic Systolic & Diastolic Heart Failure [ ] Acute on Chronic Heart Failure Systolic & Diastolic Heart Failure [ ] Other, please specify [ ] Unable to determine Chronic Systolic Heart Failure (reduced EF) MTDD
== END 2022-09-21 13:50 | disposition home or self-care (01) ==
LOC: EC 13:09 → 6NMEDSUR 14:34 → INTOOBSV 09-21 06:20 → OBSVTOIN 09-21 06:20 → UNDODISIN 09-21 13:50 → UNDODISOB 09-21 13:50
PROVIDERS: ADMIT Internal Medicine; ATTEND Internal Medicine
DX: I13.0 Hypertensive heart and chronic kidney disease with heart failure and stage 1 through stage 4 chronic kidney disease, or unspecified chronic kidney disease (principal); I50.22 Chronic systolic (congestive) heart failure; N18.9 Chronic kidney disease, unspecified; I48.0 Paroxysmal atrial fibrillation; J44.1 Chronic obstructive pulmonary disease with (acute) exacerbation; E78.5 Hyperlipidemia, unspecified; E46 Unspecified protein-calorie malnutrition; F17.290 Nicotine dependence, other tobacco product, uncomplicated; Z79.899 Other long term (current) drug therapy; Z79.01 Long term (current) use of anticoagulants; Z20.822 Contact with and (suspected) exposure to COVID-19
CPT/HCPCS: 96376 ×2; 96375 ×2; 96374; 99284; 36415; 94760; 85379; 83880; 80053; 80048; 83605; 83735; 84484; 85025 ×2; 85610; 85730; 87635; 71046; G0378 ×2; J1940 ×3; J2920 ×2; 99285

== ENCOUNTER 2022-10-18 17:21 | Inpatient (IN) | payer MEDICARE ==
--- NOTE | 2022-10-18 17:37 | ED ---
General Adult HPI - General Chief complaint: Shortness of Breath Stated complaint: Dyspnea Time Seen by Provider: 10/18/22 17:26 Source: patient, EMS, RN notes reviewed, old records reviewed Mode of arrival: EMS Limitations: no limitations - History of Present Illness Initial comments: Patient is a pleasant 87-year-old male presenting to the emergency Department with complaints of shortness of breath. Onset of symptoms was 3 or 4 days ago. Patient is somewhat a poor historian. Unclear if his history of similar symptoms previously. No leg pain or leg swelling. No chest pain. No fever. - Related Data Home Medications Medication Instructions Recorded Confirmed Tamsulosin HCl [Flomax] 0.4 mg PO DAILY 01/05/21 09/20/22 Rivaroxaban [Xarelto] 20 mg PO HS 01/06/21 09/20/22 Ferrous Sulfate [Iron (65 MG 325 mg PO DAILY 09/20/22 09/20/22 Elemental)] Multivit-Min/FA/Lycopen/Lutein 1 tab PO DAILY 09/20/22 09/20/22 [Centrum Silver Men Tablet] Simvastatin [Zocor] 10 mg PO HS 09/20/22 09/20/22 Previous Rx's Medication Instructions Recorded Furosemide [Lasix] 40 mg PO DAILY #30 tablet 09/21/22 Allergies Allergy/AdvReac Type Severity Reaction Status Date / Time No Known Allergies Allergy Verified 10/18/22 19:37 Review of Systems ROS Statement: Those systems with pertinent positive or pertinent negative responses have been documented in the HPI. ROS Other: All systems not noted in ROS Statement are negative. 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 History of Any Multi-Drug Resistant Organisms: None Reported Past Surgical History: No Surgical Hx Reported Additional Past Surgical History / Comment(s): bilateral knee surgery Additional Past Anesthesia/Blood Transfusion Reaction / Comment(s): Pt states he has never had a blood transfusion Past Psychological History: No Psychological Hx Reported Smoking Status: Never smoker Past Alcohol Use History: None Reported Past Drug Use History: None Reported General Exam Limitations: no limitations General appearance: alert, in no apparent distress Head exam: Present: normocephalic Eye exam: Present: normal appearance Neck exam: Present: normal inspection Respiratory exam: Present: rhonchi Cardiovascular Exam: Present: tachycardia GI/Abdominal exam: Present: soft. Absent: tenderness Extremities exam: Present: normal inspection. Absent: pedal edema, calf tenderness Neurological exam: Present: alert. Absent: motor sensory deficit Psychiatric exam: Present: normal affect, normal mood Skin exam: Present: normal color Course Vital Signs 10/18/22 10/18/22 10/18/22 17:24 17:32 18:32 Temperature 97.4 F L Pulse Rate 114 H 103 H Respiratory 18 18 18 Rate Blood Pressure 95/76 97/66 O2 Sat by Pulse 99 95 Oximetry EKG Findings - EKG Results: EKG: interpreted by CESARD (Right axis. Left bundle branch block. Septal Q waves. Nonspecific ST-T.) EKG shows: atrial fibrillation Medical Decision Making - Medical Decision Making Was pt. sent in by a medical professional or institution (Dr. PA, SOLUTIONS ENGINEER, urgent care, hospital, or shelter...) When possible be specific @ -No Did you speak to anyone other than the patient for history (EMS, parent, family, police, friend...)? What history was obtained from this source @ -No Did you review nursing and triage notes (agree or disagree)? Why? @ -I reviewed and agree with nursing and triage notes Were old charts reviewed (outside hosp., previous admission, EMS record, old EK G, old radiological studies, urgent care reports/EKG's, shelter records)? Report findings @ -Previous admission reviewed Differential Diagnosis (chest pain, altered mental status, abdominal pain women, abdominal pain men, vaginal bleeding, weakness, fever, dyspnea, syncope, headache, dizziness, GI bleed, back pain, seizure, CVA, palpatations, mental health, musculoskeletal)? @ -Differential Dyspnea: Coronary syndrome, arrhythmia, tamponade, asthma, COPD, pulmonary embolism, pneumonia, pneumothorax, pulmonary effusion, anaphylaxis, diabetic ketoacidosis, flailed chest, pulmonary contusion, diaphragmatic rupture, anemia, neuromus cular, this is not meant to be an all-inclusive list. EKG interpreted by me (3pts min.). @ -As above X-rays interpreted by me (1pt min.). @ -Chest x-ray shows CHF and effusions CT interpreted by me (1pt min.). @ -None done U/S interpreted by me (1pt. min.). @ -None done What testing was considered but not performed or refused? (CT, X-rays, U/S, labs)? Why? @ -None What meds were considered but not given or refused? Why? @ -None Did you discuss the management of the patient with other professionals (professionals i.e. DrNighat, PA, SOLUTIONS ENGINEER, lab, RT, psych nurse, social service director, transcription specialist, teacher, sba business development officer, case manager specialist)? Give summary @ -Case was discussed with Dr. Garcia who will admit his patient Was smoking cessation discussed for >3mins.? @ -No Was critical care preformed (if so, how long)? @ -No Were there social determinants of health that impacted care today? How? (Homelessness, low income, unemployed, alcoholism, drug addiction, transportation, low edu. Level, literacy, decrease access to med. care, senior living, rehab)? @ -No Was there de-escalation of care discussed even if they declined (Discuss DNR or withdrawal of care, Hospice)? DNR status @ -No What co-morbidities impacted this encounter? (DM, HTN, Smoking, COPD, CAD, Cancer, CVA, ARF, Chemo, Hep., AIDS, mental health diagnosis, sleep apnea, morbid obesity)? @ -None Was patient admitted / discharged? Hospital course, mention meds given and route, prescriptions, significant lab abnormalities, going to OR and other pertinent info. @ -Patient reevaluated and resting comfortably in bed. Patient is updated on results and plan. Patient will be admitted with cardiac consult. Admission orders written. Undiagnosed new problem with uncertain prognosis? @ -No Drug Therapy requiring intensive monitoring for toxicity (Heparin, Nitro, Insulin, Cardizem)? @ -No Were any procedures done? @ -No Diagnosis/symptom? @ -CHF Acute, or Chronic, or Acute on Chronic? @ -Acute Uncomplicated (without systemic symptoms) or Complicated (systemic symptoms)? @ -default Side effects of treatment? @ -No Exacerbation, Progression, or Severe Exacerbation? @ -No Poses a threat to life or bodily function? How? (Chest pain, [place], [place], pneumonia, PE, COPD, DKA, ARF, appy, cholecystitis, CVA, Diverticulitis, Homicidal, Suicidal, threat to staff... and all critical care pts) @ -No - Lab Data Result diagrams: 10/18/22 17:39 10/18/22 17:39 Lab Results 10/18/22 10/18/22 10/18/22 Range/Units 17:39 17:39 17:39 WBC 5.2 (3.8-10.6) k/uL RBC 3.93 L (4.30-5.90) m/uL Hgb 12.4 L (13.0-17.5) gm/dL Hct 37.8 L (39.0-53.0) % MCV 96.4 (80.0-100.0) fL MCH 31.7 (25.0-35.0) pg MCHC 32.9 (31.0-37.0) g/dL RDW 14.2 (11.5-15.5) % Plt Count 172 (150-450) k/uL MPV 9.9 Neutrophils % 77 % Lymphocytes % 12 % Monocytes % 9 % Eosinophils % 0 % Basophils % 0 % Neutrophils # 4.0 (1.3-7.7) k/uL Lymphocytes # 0.6 L (1.0-4.8) k/uL Monocytes # 0.5 (0-1.0) k/uL Eosinophils # 0.0 (0-0.7) k/uL Basophils # 0.0 (0-0.2) k/uL Hypochromasia Slight PT 24.7 H (9.0-12.0) sec INR 2.5 H (<1.2) APTT 38.5 H (22.0-30.0) sec D-Dimer 0.63 H (<0.60) mg/L FEU Sodium 136 L (137-145) mmol/L Potassium 5.0 (3.5-5.1) mmol/L Chloride 103 (98-107) mmol/L Carbon Dioxide 18 L (22-30) mmol/L Anion Gap 15 mmol/L BUN 58 H (9-20) mg/dL Creatinine 1.90 H (0.66-1.25) mg/dL Est GFR (CKD-EPI)AfAm 36 (>60 ml/min/1.73 sqM) Est GFR (CKD-EPI)NonAf 31 (>60 ml/min/1.73 sqM) Glucose 98 (74-99) mg/dL Plasma Lactic Acid Herbert (0.7-2.0) mmol/L Calcium 8.6 (8.4-10.2) mg/dL Magnesium 2.0 (1.6-2.3) mg/dL Total Bilirubin 1.8 H (0.2-1.3) mg/dL AST 329 H (17-59) U/L ALT 190 H (4-49) U/L Alkaline Phosphatase 98 (38-126) U/L Troponin I (0.000-0.034) ng/mL NT-Pro-B Natriuret Pep 05971 pg/mL Total Protein 6.2 L (6.3-8.2) g/dL Albumin 3.4 L (3.5-5.0) g/dL Coronavirus (PCR) (Not Detectd) 10/18/22 10/18/22 10/18/22 Range/Units 17:39 17:39 17:39 WBC (3.8-10.6) k/uL RBC (4.30-5.90) m/uL Hgb (13.0-17.5) gm/dL Hct (39.0-53.0) % MCV (80.0-100.0) fL MCH (25.0-35.0) pg MCHC (31.0-37.0) g/dL RDW (11.5-15.5) % Plt Count (150-450) k/uL MPV Neutrophils % % Lymphocytes % % Monocytes % % Eosinophils % % Basophils % % Neutrophils # (1.3-7.7) k/uL Lymphocytes # (1.0-4.8) k/uL Monocytes # (0-1.0) k/uL Eosinophils # (0-0.7) k/uL Basophils # (0-0.2) k/uL Hypochromasia PT (9.0-12.0) sec INR (<1.2) APTT (22.0-30.0) sec D-Dimer (<0.60) mg/L FEU Sodium (137-145) mmol/L Potassium (3.5-5.1) mmol/L Chloride (98-107) mmol/L Carbon Dioxide (22-30) mmol/L Anion Gap mmol/L BUN (9-20) mg/dL Creatinine (0.66-1.25) mg/dL Est GFR (CKD-EPI)AfAm (>60 ml/min/1.73 sqM) Est GFR (CKD-EPI)NonAf (>60 ml/min/1.73 sqM) Glucose (74-99) mg/dL Plasma Lactic Acid Herbert 4.1 H* (0.7-2.0) mmol/L Calcium (8.4-10.2) mg/dL Magnesium (1.6-2.3) mg/dL Total Bilirubin (0.2-1.3) mg/dL AST (17-59) U/L ALT (4-49) U/L Alkaline Phosphatase (38-126) U/L Troponin I 0.068 H* (0.000-0.034) ng/mL NT-Pro-B Natriuret Pep pg/mL Total Protein (6.3-8.2) g/dL Albumin (3.5-5.0) g/dL Coronavirus (PCR) Not Detected (Not Detectd) Disposition Clinical Impression: Congestive heart failure Disposition: ADMITTED IP TO THIS HOSP Is patient prescribed a controlled substance at d/c from ED?: No Referrals: Donovan Garcia MD [Primary Care Provider] - 1-2 days Time of Disposition: 19:39
--- NOTE | 2022-10-18 17:53 | XR ---
EXAMINATION TYPE: XR chest 2V DATE OF EXAM: 10/18/2022 5:49 PM COMPARISON: Chest radiographs from 09/20/2022 TECHNIQUE: XR chest 2V Frontal and lateral views of the chest. CLINICAL INDICATION:Male, 87 years old with history of difficulty breathing; FINDINGS: Lungs/Pleura: No pneumothorax. Patchy bibasilar airspace opacities. Pulmonary vascularity: Mild pulmonary vascular congestion. Heart/mediastinum: Cardiomediastinal silhouette is enlarged and stable. Atherosclerotic calcificatio ns are seen in the aorta. Musculoskeletal: No acute osseous pathology. Bilateral AC joint arthropathy. IMPRESSION: Cardiomegaly, pulmonary vascular congestion and bilateral small pleural effusions. Correlate with BNP for congestive heart failure. Additional patchy bibasilar airspace opacities which may represent inf iltrates versus edema.
[2022-10-18 18:18] LABS: Basophils % (A) 0 %; Eosinophils % (A) 0 %; HCT 37.8 % (39.0-53.0); HGB 12.4 gm/dL (13.0-17.5); Hypochromasia Slight; Lymphocytes # (A) 0.6 k/uL (1.0-4.8); Lymphocytes % (A) 12 %; MCH 31.7 pg (25.0-35.0); MCHC 32.9 g/dL (31.0-37.0); MCV 96.4 fL (80.0-100.0); Mean Platelet Volume 9.9; Monocytes # (A) 0.5 k/uL (0-1.0); Monocytes % (A) 9 %; Neutrophils % (A) 77 %; Platelet Count 172 k/uL (150-450); RBC 3.93 m/uL (4.30-5.90); RDW 14.2 % (11.5-15.5); WBC 5.2 k/uL (3.8-10.6)
[2022-10-18 18:37] LABS: INR 2.5 (<1.2); Partial Thromboplastin Time 38.5 sec (22.0-30.0); Prothrombin Time 24.7 sec (9.0-12.0)
[2022-10-18 18:54] LABS: ALT 190 U/L (4-49); AST 329 U/L (17-59); African American GFR (CKD) 36 (>60 ml/min/1.73 sqM); Albumin 3.4 g/dL (3.5-5.0); Alkaline Phosphatase 98 U/L (38-126); Anion Gap 15 mmol/L; Blood Urea Nitrogen 58 mg/dL (9-20); Calcium 8.6 mg/dL (8.4-10.2); Carbon Dioxide 18 mmol/L (22-30); Chloride 103 mmol/L (98-107); Glucose 98 mg/dL (74-99); Non-African American GFR(CKD) 31 (>60 ml/min/1.73 sqM); Sodium 136 mmol/L (137-145); Total Bilirubin 1.8 mg/dL (0.2-1.3); Total Protein 6.2 g/dL (6.3-8.2)
[2022-10-18 19:01] LABS: NT-Pro-B-Type Natriuretic Pept 21700 pg/mL
[2022-10-18] MEDS ORDERED: ASPIRIN 325 MG TAB PO STA (19:39)
[2022-10-18] MEDS ORDERED: FUROSEMIDE 10 MG/ML 4 ML VIAL IV SCH (19:45)
[2022-10-18] MEDS: ATORVASTATIN 10 MG TAB PO SCH (21:04)
[2022-10-18] MEDS: RIVAROXABAN 20 MG TAB PO SCH (21:04)
[2022-10-18] MEDS ORDERED: SODIUM CHLORIDE 0.9% 1,000 ML IV SCH (23:15)
--- NOTE | 2022-10-19 06:30 | P.CRDCN ---
History of Present Illness Consult date: 10/19/22 Chief complaint: Shortness of breath History of present illness: The patient is a pleasant 87-year-old gentleman with a past medical history sign ificant for permanent atrial fibrillation on oral anticoagulation as well as history of smoking as well as significant hearing impairment. We consulted to see the patient for further evaluation of shortness of breath. The patient is somewhat a poor historian. He presented to the hospital with 3 days progressive exertional dyspnea as well as orthopnea. No lower extremity edema. No symptoms of any chest pain or chest discomfort and no dizziness or lightheadedness or any feeling of heart racing or fluttering or presyncope or syncope. He underwent further workup including EKG showing underlying atrial fibrillation which is known to him from before with diffuse nonspecific ST and T wave abnormalities and low voltage QRS and RBBB. 3 sets of cardiac enzymes came in to be mildly abnormal but appeared to be flattened across the board. Please note that the patient did not have any symptoms of chest pain or chest discomfort. Chest x- ray showed evidence of pulmonary vascular congestions and finding consistent with heart failure. NT proBNP came in to be significantly elevated at 21,000. No history of congestive heart failure. The last echo from 2020 showed normal biventricular dimension and systolic function was evidence of moderate aortic stenosis and [id number] mitral regurgitation. No echocardiogram was performed within the last few years. The patient does have marginally low blood pressure. At is known to him from before. Beside that he does have chronic kidney disease. The examination is remarkable for irregular rhythm with a systolic murmur at the right and left upper sternal border was diminished breathing sounds bilaterally and no lower extremities edema noted at this point Assessment Congestive heart failure which has improved and seems to be mild at this point with evidence of left more than right failure Permanent atrial fibrillation with overall controlled heart rate Evidence of myocardial injury by mildly elevated troponin was no evidence of ischemia clinically or by EKG. Marginally low blood pressure which is a known finding to the patient from before History of smoking Chronic kidney disease Valvular heart disease with aortic stenosis and mitral regurgitation Plan Decrease the dose of Lasix IV in the light of low blood pressure and the patient is not very congested at this point Continue monitor the kidney function and electrolytes Continue oral anticoagulation Avoid any medication to lower the pressure An echo is in process to be done [place] continue oral anticoagulation Follow-up with the patient 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 History of Any Multi-Drug Resistant Organisms: None Reported Past Surgical History: No Surgical Hx Reported Additional Past Surgical History / Comment(s): bilateral knee surgery Additional Past Anesthesia/Blood Transfusion Reaction / Comment(s): Pt states he has never had a blood transfusion Smoking Status: Never smoker Medications and Allergies Home Medications Medication Instructions Recorded Confirmed Type Tamsulosin HCl [Flomax] 0.4 mg PO DAILY 01/05/21 10/18/22 History Rivaroxaban [Xarelto] 20 mg PO HS 01/06/21 10/18/22 History Ferrous Sulfate [Iron (65 MG 325 mg PO DAILY 09/20/22 10/18/22 History Elemental)] Multivit-Min/FA/Lycopen/Lutein 1 tab PO DAILY 09/20/22 10/18/22 History [Centrum Silver Men Tablet] Simvastatin [Zocor] 10 mg PO HS 09/20/22 10/18/22 History Furosemide [Lasix] 40 mg PO DAILY #30 tablet 09/21/22 10/18/22 Rx Allergies Allergy/AdvReac Type Severity Reaction Status Date / Time No Known Allergies Allergy Verified 10/18/22 19:37 Physical Exam Vitals: Vital Signs Temp Pulse Pulse Resp BP BP Pulse Ox 10/19/22 04:00 97.6 F 84 20 90/56 94 L 10/19/22 02:00 84 20 10/19/22 00:00 97.4 F L 80 20 92/56 94 L 10/18/22 22:00 97.9 F 21 96/51 94 L 10/18/22 20:12 86 18 98/76 97 10/18/22 20:00 82 21 10/18/22 18:32 97.4 F L 103 H 18 97/66 95 10/18/22 17:32 18 10/18/22 17:24 114 H 18 95/76 99 Intake and Output 10/18/22 10/18/22 10/19/22 14:59 22:59 06:59 Intake Total 250 Balance 250 Intake: Intake, IV Titration 250 Amount Sodium Chloride 0.9% 1, 250 000 ml @ 75 mls/hr IV . [id number] [facility] Rx#:[id number] Other: # Voids 1 Weight 58.967 kg 57 kg Results 10/18/22 17:39 10/18/22 17:39 Cardiac Enzymes 10/18/22 10/18/22 10/18/22 Range/Units 17:39 17:39 21:15 AST 329 H (17-59) U/L Troponin I 0.068 H* 0.072 H* (0.000-0.034) ng/mL 10/19/22 Range/Units 00:43 AST (17-59) U/L Troponin I 0.069 H* (0.000-0.034) ng/mL Coagulation 10/18/22 Range/Units 17:39 PT 24.7 H (9.0-12.0) sec APTT 38.5 H (22.0-30.0) sec CBC 10/18/22 Range/Units 17:39 WBC 5.2 (3.8-10.6) k/uL RBC 3.93 L (4.30-5.90) m/uL Hgb 12.4 L (13.0-17.5) gm/dL Hct 37.8 L (39.0-53.0) % Plt Count 172 (150-450) k/uL Comprehensive Metabolic Panel 10/18/22 Range/Units 17:39 Sodium 136 L (137-145) mmol/L Potassium 5.0 (3.5-5.1) mmol/L Chloride 103 (98-107) mmol/L Carbon Dioxide 18 L (22-30) mmol/L BUN 58 H (9-20) mg/dL Creatinine 1.90 H (0.66-1.25) mg/dL Glucose 98 (74-99) mg/dL Calcium 8.6 (8.4-10.2) mg/dL AST 329 H (17-59) U/L ALT 190 H (4-49) U/L Alkaline Phosphatase 98 (38-126) U/L Total Protein 6.2 L (6.3-8.2) g/dL Albumin 3.4 L (3.5-5.0) g/dL Current Medications Generic Name Dose Route Start Last Admin Trade Name Freq PRN Reason Stop Dose Admin Albuterol/Ipratropium 3 ml 10/19/22 08:00 Ipratropium-Albuterol 3 Ml Neb INHALATION RT-QID MARICARMEN Aspirin 325 mg 10/19/22 09:00 Aspirin 325 Mg Tab PO DAILY [facility] Atorvastatin Calcium 10 mg 10/18/22 21:00 10/18/22 21:04 Atorvastatin 10 Mg Tab PO 10 mg HS [facility] Administration Budesonide 0.5 mg 10/19/22 08:00 Budesonide 0.5 Mg/2 Ml Nebu INHALATION RT-BID [facility] Ferrous Sulfate 325 mg 10/19/22 09:00 Ferrous Sulfate 325 Mg Tab PO DAILY [facility] Furosemide 40 mg 10/18/22 19:45 10/18/22 20:01 Furosemide 10 Mg/Ml 4 Ml Vial IV 40 mg Q12H [facility] Administration Sodium Chloride 1,000 mls @ 75 mls/hr 10/18/22 23:15 Saline 0.9% IV .[id number] [facility] Multivitamins 1 each 10/19/22 09:00 Multivitamins, Thera 1 Each Tab PO DAILY [facility] Nitroglycerin 0.5 inch 10/19/22 22:00 Nitroglycerin Oint 1 Inch/Gm Packet TOPICAL QID [facility] Rivaroxaban 20 mg 10/18/22 21:00 10/18/22 21:04 Rivaroxaban 20 Mg Tab PO 20 mg HS [facility] Administration Protocol Tamsulosin HCl 0.4 mg 10/19/22 09:00 Tamsulosin 0.4 Mg Cap.Er.24h PO DAILY [facility] Intake and Output 10/18/22 10/18/22 10/19/22 14:59 22:59 06:59 Intake Total 250 Balance 250 Intake: Intake, IV Titration 250 Amount Sodium Chloride 0.9% 1, 250 000 ml @ 75 mls/hr IV . [id number] [facility] Rx#:[id number] Other: # Voids 1 Weight 58.967 kg 57 kg Patient Weight 10/19/22 06:59 Weight 57 kg 10/18/22 17:39 10/18/22 17:39
[2022-10-19] MEDS: BUDESONIDE 0.5 MG/2 ML NEBU INHALATION SCH ×2 (07:52→19:40)
[2022-10-19] MEDS: IPRATROPIUM-ALBUTEROL 3 ML NEB INHALATION SCH ×4 (07:52→19:39)
[2022-10-19] MEDS: MULTIVITAMINS, THERA 1 EACH TAB PO SCH (08:59)
[2022-10-19] MEDS ORDERED: ASPIRIN 325 MG TAB PO SCH (09:00)
[2022-10-19] MEDS: FERROUS SULFATE 325 MG TAB PO SCH (09:00)
[2022-10-19] MEDS: FUROSEMIDE 10 MG/ML 2 ML VIAL IV SCH ×2 (09:00→21:44)
[2022-10-19] MEDS ORDERED: TAMSULOSIN 0.4 MG CAP.ER.24H PO SCH (09:00)
--- NOTE | 2022-10-19 10:03 | CT ---
EXAMINATION TYPE: CT chest wo con CT DLP: 302.7 mGycm, Automated exposure control for dose reduction was used. DATE OF EXAM: 10/19/2022 9:47 AM COMPARISON: CTA chest 01/07/2021, chest radiograph 10/18/2022 CLINICAL INDICATION:Male, 87 years old with history of dyspnea; PHH, Dyspnea TECHNIQUE: Multiple axial images were obtained through the chest without IV contrast. Lack of IV or o ral contrast limits evaluation of solid and hollow organ viscera. . Coronal and sagittal reformats re viewed. FINDINGS: LUNGS/ PLEURA: Moderate size bilateral pleural effusions with associated atelectasis. Patchy consolid ative opacities with air bronchograms in the bilateral upper lobes, lingula and right middle lobe. No pneumothorax. AIRWAY: Patent and unremarkable.. HEART: The heart is mildly increased in size.. Trace pericardial effusion.Aortic valvular calcificati ons. Moderate coronary artery calcifications MEDIASTINUM: Few mildly prominent lymph nodes measuring up to 9 mm short axis. VASCULATURE: No aortic aneurysm. MUSCULOSKELETAL: No acute osseous abnormalities. Multilevel anterior osteophytosis. SOFT TISSUES/LYMPH NODES: Unremarkable. LOWER NECK: No significant findings. UPPER ABDOMEN: No significant findings. IMPRESSION: 1. Patchy consolidative opacities throughout both upper lungs, right middle lobe and lingula consiste nt with pneumonia. 2. Moderate-sized bilateral pleural effusions. 3. Mildly prominent mediastinal lymph nodes likely reactive to #1.
[2022-10-19] MEDS: methylPREDNISolone SOD SUCCI 40 MG/ML 1 ML VIAL IV SCH ×3 (11:49→23:46)
[2022-10-19] MEDS: AZITHROMYCIN 500 MG in SODIUM CHLORIDE 0.9% 250 ML IVPB SCH (11:50)
[2022-10-19] MEDS: PANTOPRAZOLE 40 MG TABLET PO SCH ×2 (12:33→18:49)
--- NOTE | 2022-10-19 13:34 | CT ---
EXAMINATION TYPE: CT abdomen wo con CT DLP: 243.4 mGycm, Automated exposure control for dose reduction was used. DATE OF EXAM: 10/19/2022 1:10 PM COMPARISON: CT chest from earlier today. CLINICAL INDICATION:Male, 87 years old with history of emesis; Vomiting TECHNIQUE: Standard CT of the abdomen without IV or oral contrast. Lack of IV or oral contrast limi ts evaluation of solid and hollow organ viscera. Coronal and sagittal reformats were performed. FINDINGS: Evaluation is limited due to lack of intravenous and oral contrast. LOWER CHEST: Please see dedicated CT chest of the same day for findings ABDOMEN LIVER: Unremarkable noncontrast appearance GALLBLADDER AND BILE DUCTS: Unremarkable noncontrast appearance PANCREAS: Unremarkable noncontrast appearance SPLEEN: Unremarkable noncontrast appearance ADRENAL GLANDS: Unremarkable noncontrast appearance. KIDNEYS AND URETERS: No evidence of hydronephrosis or renal calculus. STOMACH AND BOWEL: No focal wall thickening or surrounding inflammatory changes. No evidence of bowel obstruction. PERITONEUM: No evidence of pneumoperitoneum or free fluid. VASCULATURE: Moderate atherosclerotic calcifications are present throughout the abdominal aorta and i ts branches. No evidence of aortic aneurysm. Ectasia of the infrarenal abdominal aorta measuring up t o 2.7 cm. MUSCULOSKELETAL: No acute osseous abnormalities. Mild disc degeneration changes are present throughou t the thoracolumbar spine. Grade 1 anterolisthesis of L3 on L4. LYMPH NODES: No gross evidence for lymphadenopathy. SOFT TISSUE/ABDOMINAL WALL: Unremarkable IMPRESSION: 1. No acute abdominal process within limitations of a noncontrast exam. 2. Ectasia of the infrarenal abdominal aorta measuring up to 2.7 cm. 3. Please refer to dedicated CT chest of the same day for findings.
[2022-10-19 13:48] LABS: Glucose,Whole Blood 158 mg/dL (70-110)
[2022-10-19 14:12] LABS: ALT 343 U/L (4-49); AST 470 U/L (17-59); African American GFR (CKD) 30 (>60 ml/min/1.73 sqM); Alkaline Phosphatase 110 U/L (38-126); Anion Gap 12 mmol/L; Blood Urea Nitrogen 67 mg/dL (9-20); Calcium 8.3 mg/dL (8.4-10.2); Carbon Dioxide 21 mmol/L (22-30); Chloride 102 mmol/L (98-107); Glucose 90 mg/dL (74-99); Non-African American GFR(CKD) 26 (>60 ml/min/1.73 sqM); Potassium 4.7 mmol/L (3.5-5.1); Sodium 135 mmol/L (137-145); Total Bilirubin 1.6 mg/dL (0.2-1.3); Total Protein 5.6 g/dL (6.3-8.2)
[2022-10-19 15:56] LABS: T4, Free (Free Thyroxine) 2.38 ng/dL (0.78-2.19)
[2022-10-19] MEDS: ATORVASTATIN 10 MG TAB PO SCH (21:24)
[2022-10-19] MEDS: RIVAROXABAN 20 MG TAB PO SCH (21:25)
[2022-10-19] MEDS ORDERED: NITROGLYCERIN OINT 1 INCH/GM PACKET TOPICAL SCH (22:00)
--- NOTE | 2022-10-20 02:53 | HP ---
HISTORY AND PHYSICAL An 87-year-old pleasant male, says he has been short of breath. He has difficulty breathing for the last week or so. He gets short of breath, unable to take a deep breath for the last week or so. Denies any leg pain or swelling. No chest pain. No fevers. HOME MEDICINES: Include, 1. Flomax 0.4 mg daily. 2. Xarelto 20 daily. 3. Iron sulfate 325 daily. 4. Multivitamin daily. 5. Zocor 10 daily. ALLERGIES: Negative. REVIEW OF SYSTEMS: A 14-point review of systems negative except for his breathing, worsening over the past few weeks, fatigue, nausea, chest pain, shortness of breath, difficulty hearing. PAST MEDICAL HISTORY: Dyslipidemia, unsure what else was going on plus the atrial fibrillation in the past, on blood thinners. PHYSICAL EXAMINATION: GENERAL: He is giving appropriate answers. He has decreased hearing. He has been cachectic. SKIN: Dry. Dry mucous membranes. EXTREMITIES: No edema. CARDIOVASCULAR: S1, S2. 2/6 systolic ejection murmur with no tachycardia. GI: Soft. LUNGS: Scattered rhonchi and wheeze. PSYCH: Fair mood and affect. He has difficulty hearing, but he gives appropriate answers. OBJECTIVE: VITAL SIGNS: His temperature is 97.4, heart rate is 103 to 114, respiratory rate 18. Blood pressure is 95 to 97 over 66 to 76. He has right axis, left bundle branch block. Nonspecific ST-T. PLAN: Atrial fibrillation for which probably he is on Xarelto. CAT scan was read as bilateral pneumonia. He has high BNP levels. He has hypotension, elevated lactic acidosis. I suspect he is dehydrated and he has bilateral pneumonia with elevated procalcitonin and significantly COPD, has elevated D-dimer. INR is 2.5 already. Sodium is 136, potassium is 5, BUN is 58, creatinine is 1.90, total bilirubin is 1.8, AST 329, ALT is 190, elevated liver enzymes secondary to possibly CHF. CT scan of the abdomen did not show anything wrong with his belly. ASSESSMENT: Congestive heart failure and possible bilateral pneumonia, chronic obstructive pulmonary disease, acute on chronic hypoxemic respiratory failure. abnormal thyroid levels. Recheck them. Elevated troponin secondary to inflammatory process. I am going to start him on broad-spectrum antibiotics, steroids for his breathing. IV antibiotics with Cardiology evaluate him for heart failure. Echo is pending. Please see further orders. Prognosis guarded. Family wants him no resuscitation DNR. MMODL / IJN: [id number] /
--- NOTE | 2022-10-20 05:58 | P.CNPUL ---
History of Present Illness Consult date: 10/20/22 Requesting physician: Donovan Garcia Reason for consult: dyspnea Chief complaint: Shortness of breath History of present illness: I am seeing this patient in consultation today 10/20/2022 on the cardiac stepdown unit for acute hypoxemic respiratory failure. Patient seems to be delirious, and is a poor historian at this point. Reported medical history includes atrial fibrillation anticoagulated on Xarelto, hyperlipidemia, BPH, and hearing loss. Patient reportedly presented to the emergency room on October 18 with shortness of breath that started 3-4 days prior to arrival. Chest x-ray on arrival showed cardiomegaly with bilateral small pleural effusions and mild pulmonary vascular congestion concerning for CHF exacerbation, there were additional bilateral patchy infiltrates concerning for possible pneumonia. A follow-up chest CT demonstrated patchy consolidative opacities throughout both upper lungs, right mid lobe, and lingula consistent with pneumonia. There were also moderate size bilateral pleural effusions. Patient was admitted to the cardiac stepdown unit, and reportedly had a hypoxic episode yesterday afternoon. At that point, we were consulted. Patient is currently sitting up in bed, on 5 L/m nasal cannula, acutely confused. There is a drug safety coordinator at the bedside. He is receiving IV steroids. Blood pressures are marginal 80s/60s mmHg. Heart rhythm is atrial fibrillation with controlled ventricular rate. CBC arrival shows a WBC count of 5.2, hemoglobin 12.4, hematocrit 37.8, and platelets 172. Most recent BMP from yesterday shows a sodium 135, potassium 4.7, chloride 102, serum bicarb 21, BUN 67, creatinine 2.22, glucose 90. LFTs are elevated with an AST of 470, ALT of 343. Troponins are also elevated but stable at 0.07. Lactic acid level was elevated at 2.9 is down to 1.9. Pro calcitonin level was mildly elevated at 0.12. COVID-19 negative. D-dimer was elevated at 0.63, however, the patient is anticoagulated chronically on Xarelto and clinical suspicion for PE is low. Patient was placed on empiric antibiotics with a combination of a zithromycin and Rocephin. He's afebrile. No IV maintenance fluids are infusing. Patient is receiving Lasix 20 mg twice a day. Patient's status is borderline, and his prognosis is guarded. Patient is a DO NOT RESUSCITATE/DO NOT INTUBATE. Review of Systems ROS unobtainable: due to mental status 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 History of Any Multi-Drug Resistant Organisms: None Reported Past Surgical History: No Surgical Hx Reported Additional Past Surgical History / Comment(s): bilateral knee surgery Additional Past Anesthesia/Blood Transfusion Reaction / Comment(s): Pt states he has never had a blood transfusion Smoking Status: Never smoker Medications and Allergies Home Medications Medication Instructions Recorded Confirmed Type Tamsulosin HCl [Flomax] 0.4 mg PO DAILY 01/05/21 10/18/22 History Rivaroxaban [Xarelto] 20 mg PO HS 01/06/21 10/18/22 History Ferrous Sulfate [Iron (65 MG 325 mg PO DAILY 09/20/22 10/18/22 History Elemental)] Multivit-Min/FA/Lycopen/Lutein 1 tab PO DAILY 09/20/22 10/18/22 History [Centrum Silver Men Tablet] Simvastatin [Zocor] 10 mg PO HS 09/20/22 10/18/22 History Furosemide [Lasix] 40 mg PO DAILY #30 tablet 09/21/22 10/18/22 Rx Allergies Allergy/AdvReac Type Severity Reaction Status Date / Time No Known Allergies Allergy Verified 10/18/22 19:37 Physical Exam Vitals: Vital Signs Temp Pulse Pulse Resp BP Pulse Ox FiO2 10/20/22 03:29 108 H 22 87/60 96 10/20/22 02:00 88 22 10/20/22 00:00 97.1 F L 88 22 80/56 98 10/19/22 20:00 97.6 F 91 22 84/42 96 10/19/22 19:50 108 H 10/19/22 19:40 78 10/19/22 16:00 96.9 F L 102 H 22 89/67 96 10/19/22 15:30 100 10/19/22 15:18 105 H 50 10/19/22 14:00 54 L 26 H 10/19/22 13:52 100 10/19/22 13:47 100 10/19/22 13:46 100 10/19/22 12:00 96.9 F L 54 L 20 93/68 95 10/19/22 08:05 85 10/19/22 08:00 97.1 F L 84 20 95/55 94 L 10/19/22 07:53 84 Intake and Output 10/19/22 10/19/22 10/20/22 14:59 22:59 06:59 Intake Total 0 400 Output Total 350 Balance -350 400 Intake: Intake, IV Titration 100 Amount cefTRIAXone 1 gm In 100 Sodium Chloride 0.9% 50 ml @ 100 mls/hr IVPB Q12HR [facility] Rx#:[id number] Oral 0 300 Output: Urine 350 Other: Voiding Method Urinal Urinal Urinal # Voids 1 1 GENERAL EXAM: Alert but acutely confused and delirious , 87-year-old white male, who is anxious HEAD: Normocephalic and atraumatic EYES: Normal reaction of pupils, equal size. NOSE: Clear with pink turbinates. THROAT: No erythema or exudates. NECK: No masses, no JVD. CHEST: No chest wall deformity. LUNGS: Equal air entry with scattered rhonchi and bibasilar inspiratory crackles. On 5 L/m nasal cannula. No conversational dyspnea or accessory muscle use.. CVS: S1 and S2 normal with no audible murmur, irregular rhythm. No extra heart sounds ABDOMEN: No hepatosplenomegaly, active bowel sounds, no guarding or rigidity. SPINE: No scoliosis or deformity SKIN: No rashes CENTRAL NERVOUS SYSTEM: No focal deficits, tone is normal in all 4 extremities. EXTREMITIES: There is no peripheral edema, clubbing, or cyanosis. Peripheral pulses are intact. Results - Laboratory Findings CBC and BMP: 10/20/22 07:49 10/20/22 07:49 PT/INR, D-dimer PT 24.7 sec (9.0-12.0) H 10/18/22 17:39 INR 2.5 (<1.2) H 10/18/22 17:39 D-Dimer 0.63 mg/L FEU (<0.60) H 10/18/22 17:39 Abnormal lab findings: Abnormal Labs 10/18/22 10/18/22 10/18/22 17:39 17:39 17:39 RBC 3.93 L Hgb 12.4 L Hct 37.8 L Lymphocytes # 0.6 L PT 24.7 H INR 2.5 H APTT 38.5 H D-Dimer 0.63 H Sodium 136 L Carbon Dioxide 18 L BUN 58 H Creatinine 1.90 H POC Glucose (mg/dL) Plasma Lactic Acid Herbert Calcium Total Bilirubin 1.8 H AST 329 H ALT 190 H Troponin I Total Protein 6.2 L Albumin 3.4 L Procalcitonin TSH Free T4 10/18/22 10/18/22 10/18/22 17:39 17:39 21:15 RBC Hgb Hct Lymphocytes # PT INR APTT D-Dimer Sodium Carbon Dioxide BUN Creatinine POC Glucose (mg/dL) Plasma Lactic Acid Herbert 4.1 H* Calcium Total Bilirubin AST ALT Troponin I 0.068 H* 0.072 H* Total Protein Albumin Procalcitonin TSH Free T4 10/18/22 10/19/22 10/19/22 21:54 00:43 00:43 RBC Hgb Hct Lymphocytes # PT INR APTT D-Dimer Sodium Carbon Dioxide BUN Creatinine POC Glucose (mg/dL) Plasma Lactic Acid Herbert 2.9 H* Calcium Total Bilirubin AST ALT Troponin I 0.069 H* Total Protein Albumin Procalcitonin 0.10 H TSH Free T4 10/19/22 10/19/22 10/19/22 00:43 12:07 12:07 RBC Hgb Hct Lymphocytes # PT INR APTT D-Dimer Sodium 135 L Carbon Dioxide 21 L BUN 67 H Creatinine 2.22 H POC Glucose (mg/dL) Plasma Lactic Acid Herbert 2.3 H* Calcium 8.3 L Total Bilirubin 1.6 H AST 470 H ALT 343 H Troponin I Total Protein 5.6 L Albumin 3.0 L Procalcitonin 0.12 H TSH 8.190 H Free T4 2.38 H 10/19/22 13:37 RBC Hgb Hct Lymphocytes # PT INR APTT D-Dimer Sodium Carbon Dioxide BUN Creatinine POC Glucose (mg/dL) 158 H Plasma Lactic Acid Herbert Calcium Total Bilirubin AST ALT Troponin I Total Protein Albumin Procalcitonin TSH Free T4 - Diagnostic Findings Chest x-ray: image reviewed Assessment and Plan Assessment: Acute hypoxemic respiratory failure, currently on 5 L/m nasal cannula, possibly multifactorial related to CHF exacerbation and bilateral community-acquired pneumonia. Chest x-ray on arrival showed cardiomegaly with bilateral small pleural effusions and mild pulmonary vascular congestion concerning for CHF e xacerbation, there were additional bilateral patchy infiltrates concerning for possible pneumonia. A follow-up chest CT demonstrated patchy consolidative opacities throughout both upper lungs, right mid lobe, and lingula consistent with pneumonia. Procalcitonin was mildly elevated at 0.12. No leukocytosis. [place] [id number]. 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 Rule out obstructive uropathy. Rule out ATN. Elevated LFTs, undetermined significance Elevated Troponins, are stable not indicating ACS Hyperlipidemia BPH Hearing loss. Large area of bruising along the left temporal scalp area. Patient had a limited trauma to his head. CAT scan of the brain has not been done. Nevertheless, is awake and alert in his neurologic exam is none focal. Plan: Patient's medications, labs, chest x-ray reviewed Continue supplemental oxygen Procalcitonin was mildly elevated at 0.12 Continue empiric antibiotics Patient's blood pressure is borderline hypotensive Hold antihypertensives Echocardiogram is pending Diuretics currently on hold Anticoagulated on Xarelto Protonix for GI prophylaxis I would also hold IV steroids due to acute delirium Patient is a DO NOT RESUSCITATE/DO NOT INTUBATE Prognosis is guarded due to above-mentioned comorbidities We will continue to follow and make recommendations I have personally seen and examined the patient, performed the documentation and the assessment and plan as written. Number of minutes spent on the visit:20 This is a joint evaluation that was done along with a nurse practitioner. The patient comes in with worsening shortness of breath, pulmonary edema, cardiomegaly and bilateral pleural effusions and hypoxic respiratory failure. Previous echocardiogram from December 2020 showed mild to moderate impairment of LV function with an EF of around 40-45% and the patient has also moderate degree of aortic stenosis and [id number] mitral regurgitation and [id number] tricuspid regurgitation. His current presentation is typical of CHF. Is currently on 5 L of oxygen by nasal cannula. He was having con siderable amount of shortness of breath. His pro calcitonin level is at 0.18. His proBNP level is 21,700. He is also in acute kidney injury and the creatinine was at 1.9 and it progressively came up to 2.5 during this current admission. Troponins are 0.07 and 0.06 respectively. The patient is currently on IV Lasix 20 mg every 12 hours. He has not urinated for the past 16 hours. Unable to bladder scan this patient due to a broken machine. Obviously, the patient will need a Ross catheter to monitor these urine output especially with his underlying renal failure. He is on a combination of Rocephin and Zithromax and these are essentially empiric antibiotic coverage. He remained nature fibrillation and the rate is controlled and the patient is on anti-coagulation with Xarelto and the dose has a modified to 50 mg on a daily basis due to his underlying renal failure. Note that this is a acute kidney injury as the patient has essentially a normal renal function at baseline. Echo cardiac that was done today and the results are still pending. The patient has also evidence of some chronic DVTs left lower extremity based on the Doppler that was done during this current admission. He does have also a troponin leak. Mortgage Originator on the case. We'll continue to follow, this evaluation was done in more than 30 minutes. May need a CAT scan of the brain later stage without contrast to rule out any subdural hematoma, medications related to his trauma to his head. Time with Patient: Greater than 30
[2022-10-20] MEDS: PANTOPRAZOLE 40 MG TABLET PO SCH ×2 (07:14→18:19)
[2022-10-20 08:37] LABS: Basophils % (A) 0 %; Eosinophils % (A) 0 %; HCT 37.9 % (39.0-53.0); HGB 12.1 gm/dL (13.0-17.5); Hypochromasia Slight; Lymphocytes # (A) 0.4 k/uL (1.0-4.8); Lymphocytes % (A) 6 %; MCH 31.1 pg (25.0-35.0); MCV 97.2 fL (80.0-100.0); Mean Platelet Volume 10.1; Monocytes # (A) 0.3 k/uL (0-1.0); Monocytes % (A) 5 %; Neutrophils # (A) 6.2 k/uL (1.3-7.7); Neutrophils % (A) 88 %; Platelet Count 177 k/uL (150-450)
[2022-10-20 09:00] LABS: ALT 623 U/L (4-49); AST 711 U/L (17-59); African American GFR (CKD) 26 (>60 ml/min/1.73 sqM); Albumin 3.1 g/dL (3.5-5.0); Alkaline Phosphatase 105 U/L (38-126); Blood Urea Nitrogen 79 mg/dL (9-20); Carbon Dioxide 16 mmol/L (22-30); Glucose 135 mg/dL (74-99); Non-African American GFR(CKD) 22 (>60 ml/min/1.73 sqM); Total Bilirubin 1.2 mg/dL (0.2-1.3); Total Protein 5.6 g/dL (6.3-8.2)
[2022-10-20] MEDS: BUDESONIDE 0.5 MG/2 ML NEBU INHALATION SCH (09:25)
[2022-10-20] MEDS: IPRATROPIUM-ALBUTEROL 3 ML NEB INHALATION SCH ×3 (09:25→15:29)
[2022-10-20] MEDS: FUROSEMIDE 10 MG/ML 2 ML VIAL IV SCH (09:48)
[2022-10-20] MEDS: FERROUS SULFATE 325 MG TAB PO SCH (09:48)
[2022-10-20] MEDS: MULTIVITAMINS, THERA 1 EACH TAB PO SCH (09:49)
[2022-10-20] MEDS: ASPIRIN 81 MG PO SCH (09:49)
[2022-10-20 09:54] LABS: Anion Gap 15 mmol/L; Chloride 101 mmol/L (98-107); Potassium 4.5 mmol/L (3.5-5.1); Sodium 132 mmol/L (137-145)
[2022-10-20] MEDS ORDERED: FUROSEMIDE 10 MG/ML 10 ML VIAL IV STA (10:55)
[2022-10-20] MEDS ORDERED: SODIUM BICARB 8.4% 50 ML SYR (1 MEQ/ML) IV STA (11:41)
--- NOTE | 2022-10-20 11:44 | P.NPCON ---
History of Present Illness - Reason for Consult acute renal failure - History of Present Illness Reason for consultation: Acute kidney injury History of present illness: Patient is a 87-year-old male seen in renal consultation for acute kidney injury. Patient's creatinine in December 2020 was near 1 and in the range of 1.3-1.4 in August 2022. This admission his creatinine was 1.9 and is up to 2.5 today. Patient came to the hospital due to shortness of breath going on for about 3-4 days. Patient is not a very reliable historian. He denies edema in the lower extremities. He's currently on 5 L nasal cannula. No hydronephrosis noted on abdomen CT. Chest CT showed bilateral pleural effusions. Ec hocardiogram is pending. He is also on antibiotics for possible pneumonia. Pulmonology is following. Patient is currently oliguric. Ross catheter was placed this morning and only 50 mL of urine was obtained. He is currently receiving IV Lasix 20 mg twice daily and did receive Lasix yesterday due to low blood pressure. No history of diabetes. Most recent blood pressure 106/72. I don't see any NSAIDs and his home medication list. Vital signs are stable. General: No acute distress. HEENT: Head exam is unremarkable. On nasal cannula. LUNGS: Scattered rhonchi. HEART: Rate and Rhythm are regular. ABDOMEN: Nontender. No distention. EXTREMITITES: No edema. 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 History of Any Multi-Drug Resistant Organisms: None Reported Past Surgical History: No Surgical Hx Reported Additional Past Surgical History / Comment(s): bilateral knee surgery Additional Past Anesthesia/Blood Transfusion Reaction / Comment(s): Pt states he has never had a blood transfusion Smoking Status: Never smoker Medications and Allergies Home Medications Medication Instructions Recorded Confirmed Type Tamsulosin HCl [Flomax] 0.4 mg PO DAILY 01/05/21 10/18/22 History Rivaroxaban [Xarelto] 20 mg PO HS 01/06/21 10/18/22 History Ferrous Sulfate [Iron (65 MG 325 mg PO DAILY 09/20/22 10/18/22 History Elemental)] Multivit-Min/FA/Lycopen/Lutein 1 tab PO DAILY 09/20/22 10/18/22 History [Centrum Silver Men Tablet] Simvastatin [Zocor] 10 mg PO HS 09/20/22 10/18/22 History Furosemide [Lasix] 40 mg PO DAILY #30 tablet 09/21/22 10/18/22 Rx Allergies Allergy/AdvReac Type Severity Reaction Status Date / Time No Known Allergies Allergy Verified 10/18/22 19:37 Physical Exam Vitals: Vital Signs Temp Pulse Pulse Resp BP Pulse Ox FiO2 10/20/22 05:57 97 28 H 106/72 98 10/20/22 03:29 108 H 22 87/60 96 10/20/22 02:00 88 22 10/20/22 00:00 97.1 F L 88 22 80/56 98 10/19/22 20:00 97.6 F 91 22 84/42 96 10/19/22 19:50 108 H 10/19/22 19:40 78 10/19/22 16:00 96.9 F L 102 H 22 89/67 96 10/19/22 15:30 100 10/19/22 15:18 105 H 50 10/19/22 14:00 54 L 26 H 10/19/22 13:52 100 10/19/22 13:47 100 10/19/22 13:46 100 10/19/22 12:00 96.9 F L 54 L 20 93/68 95 Intake and Output 10/19/22 10/20/22 10/20/22 22:59 06:59 14:59 Intake Total 400 50 Balance 400 50 Intake: Intake, IV Titration 100 Amount cefTRIAXone 1 gm In 100 Sodium Chloride 0.9% 50 ml @ 100 mls/hr IVPB Q12HR [facility] Rx#:[id number] Oral 300 50 Other: Voiding Method Urinal Urinal # Voids 1 Weight 59.5 kg Results - Lab Results Most recent lab results Calcium 8.0 mg/dL (8.4-10.2) L 10/20/22 07:49 Magnesium 2.0 mg/dL (1.6-2.3) 10/18/22 17:39 10/20/22 07:49 10/20/22 07:49 Assessment and Plan Plan: Assessment: 1. Acute kidney injury secondary to ATN secondary to hypotension and cardiorenal syndrome. Creatinine 1.9 on admission and is 2.53 today. Oliguric. No hydronephrosis noted on CAT scan. No evidence of urinary retention. 2. Chronic kidney disease stage IIIA for baseline creatinine 1.3-1.4 in August 2022. Creatinine near 1 in December 2020. 3. Acute hypoxic respiratory failure secondary to volume overload and pneumonia. 4. Volume overload. 5. Metabolic acidosis secondary to acute kidney injury. Plan: Add midodrine 10 mg 3 times daily. Hold for systolic blood pressure greater than 1:15. Check UA. Lasix 80 mg IV once today. Cortisol level not low. Add oral bicarb. 2 A of sodium bicarb IV push now. Continue to monitor renal function and urine output. Continue to assess daily for need for renal replacement therapy. Follow-up echocardiogram. Thank you for the consultation. I will continue to follow the patient with you during his hospital stay.
[2022-10-20] MEDS: MIDODRINE 5 MG TAB PO SCH ×2 (12:08→18:19)
--- NOTE | 2022-10-20 12:41 | P.PN ---
Subjective HISTORY OF PRESENT ILLNESS: The patient is a pleasant 87-year-old gentleman with a past medical history significant for permanent atrial fibrillation on oral anticoagulation as well as history of smoking as well as significant hearing impairment. We consulted to see the patient for further evaluation of shortness of breath. The patient is somewhat a poor historian. He presented to the hospital with 3 days progressive exertional dyspnea as well as orthopnea. No lower extremity edema. No symptoms of any chest pain or chest discomfort and no dizziness or lightheadedness or any feeling of heart racing or fluttering or presyncope or syncope. He underwent further workup including EKG showing underlying atrial fibrillation which is known to him from before with diffuse nonspecific ST and T wave abnormalities and low voltage QRS and RBBB. 3 sets of cardiac enzymes came in to be mildly abnormal but appeared to be flattened across the board. Please note that the patient did not have any symptoms of chest pain or chest discomfort. Chest x- ray showed evidence of pulmonary vascular congestions and finding consistent with heart failure. NT proBNP came in to be significantly elevated at 21,000. No history of congestive heart failure. The last echo from 2020 showed normal biventricular dimension and systolic function was evidence of moderate aortic stenosis and [id number]-[id number] mitral regurgitation. No echocardiogram was performed within the last few years. The patient does have marginally low blood pressure. At is known to him from before. Beside that he does have chronic kidney disease. The examination is remarkable for irregular rhythm with a systolic murmur at the right and left upper sternal border was diminished breathing sounds bilaterally and no lower extremities edema noted at this point 10/20/2022 Examined this morning at the bedside. Patient denies chest pain or pressure. He denies shortness of breath. He remains on IV Lasix. Patient's blood pressure overnight was in the 80s. Telemetry reveals atrial fibrillation with controlled ventricular rate. PHYSICAL EXAM: VITAL SIGNS: Reviewed. GENERAL: Well-developed in no acute distress. NECK: Supple. No JVD or thyromegaly LUNGS: Respirations even and unlabored. Lungs with crackles at the bases HEART: Irregular rate and rhythm. S1 and S2 heard. EXTREMITIES: Normal range of motion. No clubbing or cyanosis. Peripheral pulses intact. No lower extremity edema ASSESSMENT: Acute on chronic heart failure with perserved LV systolic function Permanent atrial fibrillation with controlled ventricular rate Abnormal troponins, not suggestive of acute coronary syndrome Marginal hypotension, which patient previously reports Acute on chronic kidney disease Valvular heart disease including aortic stenosis and mitral regurgitation Former nicotine dependence PLAN: Continue IV Lasix. Daily weights, accurate I&O, and monitoring of kidney function. Nephrology following. 2-D echo obtained. Await results. Continue to monitor blood pressure Further recommendations pending patient's course Nurse practitioner note has been reviewed by physician. Signing provider agrees with the documented findings, assessment, and plan of care. Objective - Vital Signs Vital signs: Vital Signs Temp 96.3 F L 10/20/22 08:00 Pulse 66 10/20/22 12:10 Resp 22 10/20/22 12:10 BP 86/52 10/20/22 12:10 Pulse Ox 98 10/20/22 12:10 FiO2 50 10/19/22 15:18 Intake & Output 10/19/22 10/20/22 10/20/22 18:59 06:59 18:59 Intake Total 0 400 50 Output Total 350 Balance -350 400 50 Weight 59.5 kg Intake: Intake, IV Titration 100 Amount cefTRIAXone 1 gm In 100 Sodium Chloride 0.9% 50 ml @ 100 mls/hr IVPB Q12HR [facility] Rx#:[id number] Oral 0 300 50 Output: Urine 350 Other: Voiding Method Urinal Urinal Urinal # Voids 1 - Labs CBC & Chem 7: 10/20/22 07:49 10/20/22 07:49 Labs: Abnormal Lab Results - Last 24 Hours (Table) 10/19/22 10/19/22 10/19/22 Range/Units 12:07 12:07 13:37 RBC (4.30-5.90) m/uL Hgb (13.0-17.5) gm/dL Hct (39.0-53.0) % Lymphocytes # (1.0-4.8) k/uL Sodium 135 L (137-145) mmol/L Carbon Dioxide 21 L (22-30) mmol/L BUN 67 H (9-20) mg/dL Creatinine 2.22 H (0.66-1.25) mg/dL Glucose (74-99) mg/dL POC Glucose (mg/dL) 158 H (70-110) mg/dL Calcium 8.3 L (8.4-10.2) mg/dL Total Bilirubin 1.6 H (0.2-1.3) mg/dL AST 470 H (17-59) U/L ALT 343 H (4-49) U/L Total Protein 5.6 L (6.3-8.2) g/dL Albumin 3.0 L (3.5-5.0) g/dL Procalcitonin 0.12 H (0.02-0.09) ng/mL TSH 8.190 H (0.465-4.680) mIU/L Free T4 2.38 H (0.78-2.19) ng/dL 10/20/22 10/20/22 Range/Units 07:49 07:49 RBC 3.90 L (4.30-5.90) m/uL Hgb 12.1 L (13.0-17.5) gm/dL Hct 37.9 L (39.0-53.0) % Lymphocytes # 0.4 L (1.0-4.8) k/uL Sodium 132 L (137-145) mmol/L Carbon Dioxide 16 L (22-30) mmol/L BUN 79 H (9-20) mg/dL Creatinine 2.53 H (0.66-1.25) mg/dL Glucose 135 H (74-99) mg/dL POC Glucose (mg/dL) (70-110) mg/dL Calcium 8.0 L (8.4-10.2) mg/dL Total Bilirubin (0.2-1.3) mg/dL AST 711 H (17-59) U/L ALT 623 H (4-49) U/L Total Protein 5.6 L (6.3-8.2) g/dL Albumin 3.1 L (3.5-5.0) g/dL Procalcitonin (0.02-0.09) ng/mL TSH (0.465-4.680) mIU/L Free T4 (0.78-2.19) ng/dL
[2022-10-20] MEDS ORDERED: SODIUM BICARB 8.4% 50 ML SYR (1 MEQ/ML) ONE (12:57)
[2022-10-20] MEDS: SODIUM BICARBONATE TAB 650 MG TAB PO SCH ×2 (12:59→22:48)
[2022-10-20] MEDS: AZITHROMYCIN 500 MG in SODIUM CHLORIDE 0.9% 250 ML IVPB SCH (12:59)
[2022-10-20 13:58] VITALS: BMI 21.2
[2022-10-20] MEDS ORDERED: SODIUM CHLORIDE 0.9% 500 ML 500 ML IV ONE (15:15)
--- NOTE | 2022-10-20 17:12 | US ---
EXAMINATION TYPE: US kidneys/renal and bladder DATE OF EXAM: 10/20/2022 COMPARISON: NONE CLINICAL INDICATION: Male, 87 years old with history of oliguria; Inpatient. Low urine output. Afte r RK and BLADDER images, patient became unstable. technical artist came back to try to image LK. Low BP. Ken. EXAM MEASUREMENTS: Right Kidney: 9.1 x 3.9 x 3.5 cm Ultrasound notes: Unable to position or move pt for different views to obtain left kidney images due to patients unstable condition Right Kidney: No hydronephrosis or masses seen Left Kidney: Obscured by overlying bowel gas. Bladder: Ken visualized Bilateral Jets not seen due to ken Incidental finding: Left pleural seen IMPRESSION: 1. No evidence of right hydronephrosis. 2. Left kidney unable to be visualized due to patient positioning. 3. Left pleural fusion.
[2022-10-20] MEDS ORDERED: LORazepam 2 MG/ML INJ IV PRN (18:04)
--- NOTE | 2022-10-20 19:30 | CA ---
Transthoracic Echo Report Name: Paddy Blakely Age: 87 Gender: M : 1935 Exam Date: 10/20/2022 08:52 Exam Location: [facility] Ht (in): 66 Wt (lb): 130 Ordering Physician: Donovan Garcia MD Attending/Referring Phys: Activity Manager Dimitri Pinzon Procedure CPT: Indications: chf Cardiac Hx: Technical Quality: Fair Contrast 1: Total Dose (mL): Contrast 2: Total Dose (mL): MEASUREMENTS (Male / Female) Normal Values 2D ECHO LV Diastolic Diameter PLAX 4.9 cm 4.2 - 5.9 / 3.9 - 5.3 cm LV Systolic Diameter PLAX 4.0 cm IVS Diastolic Thickness 1.1 cm 0.6 - 1.0 / 0.6 - 0.9 cm LVPW Diastolic Thickness 1.1 cm 0.6 - 1.0 / 0.6 - 0.9 cm LV Relative Wall Thickness 0.4 RV Internal Dim ED PLAX 2.6 cm LVOT Diameter 2.0 cm Aortic Root Diameter 2.9 cm LA Systolic Diameter LX 4.1 cm 3.0 - 4.0 / 2.7 - 3.8 cm LV Diastolic Volume MOD BP 147.7 cm??? 67 - 155 / 56 - 104 cm??? LV Systolic Volume MOD BP 96.8 cm??? - 58 / 19 - 49 cm??? LV Ejection Fraction MOD BP 34.5 % >= 55 % LV Cardiac Index MOD BP 2646.8 cm???/min???m??? LV Diastolic Volume MOD 4C 125.6 cm??? LV Systolic Volume MOD 4C 87.1 cm??? LV Ejection Fraction MOD 4C 30.7 % LV Cardiac Index MOD 4C 1999.9 cm???/min???m??? LV Diastolic Length 4C 9.1 cm LV Systolic Length 4C 8.2 cm LV Diastolic Volume MOD 2C 172.0 cm??? LV Systolic Volume MOD 2C 103.8 cm??? LV Ejection Fraction MOD 2C 39.6 % LV Cardiac Index MOD 2C 3539.2 cm???/min???m??? LV Diastolic Length 2C 9.2 cm LV Systolic Length 2C 8.5 cm LA Volume 72.1 cm??? 18 - 58 / 22 - 52 cm??? Ascending Aorta Diameter 2.6 cm DOPPLER AV Peak Velocity 317.0 cm/s AV Peak Gradient 40.2 mmHg AV Mean Velocity 227.8 cm/s AV Mean Gradient 24.4 mmHg AV Velocity Time Integral 63.9 cm AI Peak Velocity 329.9 cm/s AI Peak Gradient 43.5 mmHg AI Pressure Half Time 566.5 ms LVOT Peak Velocity 34.5 cm/s LVOT Peak Gradient 0.5 mmHg LVOT Velocity Time Integral 7.6 cm LVOT Stroke Volume 22.8 cm??? LVOT Stroke Volume Index 13.7 ml/m??? LVOT Cardiac Index 1184.0 cm???/min???m??? AV Area Cont Eq vti 0.4 cm??? AV Area Cont Eq pk 0.3 cm??? MR Peak Velocity 479.4 cm/s MR Peak Gradient 91.9 mmHg Mitral E Point Velocity 96.1 cm/s Mitral A Point Velocity 28.0 cm/s Mitral E to A Ratio 3.4 MV Deceleration Time 178.8 ms MV E' Velocity 2.4 cm/s Mitral E to MV E' Ratio 40.6 TR Peak Velocity 303.8 cm/s TR Peak Gradient 36.9 mmHg Right Ventricular Systolic Press 47.1 mmHg PV Peak Velocity 153.9 cm/s PV Peak Gradient 9.5 mmHg FINDINGS Left Ventricle Normal LV size and wall thickness. Left ventricular ejection fraction is estimated at 10-15 %. Right Ventricle Normal right ventricular size. RVSP= 53mmhg. Right Atrium Normal right atrial size. Left Atrium LA volume index= 43ml/m2 Mitral Valve Structurally normal mitral valve. Severe MR. Aortic Valve Severe AV stenosis. Peak gradient= 40mmHg, Mean gradient = 24.4mmHg. Estimate AV area by VTI= 0.4cm2 . Moderte AI. Tricuspid Valve Structurally normal tricuspid valve. Moderate TR. Pulmonic Valve Pulmonic valve not well visualized. Moderate PI. Pericardium Left pleural effusion. Aorta Normal size aortic root and proximal ascending aorta. CONCLUSIONS Severe LV dysfunction Reduced opening of the aortic valve with a peak gradient of 40 mmHg in the setting of severe LV dysfunction with moderate aortic regurgitation Moderate tricuspid regurgitation Severe mitral regurgitation Previewed by: Dr. Ayo Nassar MD (Electronically Signed) Final Date: 20 October 2022 19:29
[2022-10-20 20:44] VITALS: TEMP 97.4
[2022-10-20] MEDS ORDERED: RIVAROXABAN 15 MG TAB PO SCH (21:00)
[2022-10-20] MEDS: ATORVASTATIN 10 MG TAB PO SCH (22:47)
[2022-10-20] MEDS: MORPHINE SULFATE 2 MG/ML SYRINGE IVP PRN (23:00)
--- NOTE | 2022-10-20 23:47 | PN ---
PROGRESS NOTE OBJECTIVE: VITAL SIGNS: The patient remains 98% on 5 L. Blood pressure is 86 to 106/67, pulse 60s, respiratory rate 20 to 24, temperature 96.3. LABORATORY DATA: Hemoglobin 12.1, BUN is 79, creatinine 2.53. Suspect the patient wants comfort care. The family does not want any fluids given. With the worsening renal function, I suspect he is dehydrated, his left kidney unable to his left pleural effusion. Family really does not want anything done apparently, so continue with possibly comfort measures, breathing treatments, etc., oxygen or bicarb. Midodrine has been ordered. PROGNOSIS: Guarded. MMODL / IJN: [id number] /
[2022-10-21] MEDS: MORPHINE SULFATE 2 MG/ML SYRINGE IVP PRN ×3 (03:18→12:11)
[2022-10-21 04:30] VITALS: BP 83/53
[2022-10-21] MEDS: SODIUM CHLORIDE 0.9% 1,000 ML IV SCH ×3 (04:31→23:26)
[2022-10-21] MEDS: MIDODRINE 5 MG TAB PO SCH ×2 (04:48→12:52)
[2022-10-21] MEDS: PANTOPRAZOLE 40 MG TABLET PO SCH (04:49)
[2022-10-21] MEDS: ASPIRIN 81 MG PO SCH (10:07)
[2022-10-21] MEDS: AZITHROMYCIN 500 MG in SODIUM CHLORIDE 0.9% 250 ML IVPB SCH (10:07)
[2022-10-21] MEDS: FERROUS SULFATE 325 MG TAB PO SCH (10:08)
[2022-10-21] MEDS: MULTIVITAMINS, THERA 1 EACH TAB PO SCH (10:08)
[2022-10-21] MEDS: SODIUM BICARBONATE TAB 650 MG TAB PO SCH (10:08)
--- NOTE | 2022-10-21 11:35 | P.PN ---
Subjective Progress Note Date: 10/21/22 I am seeing this patient in consultation today 10/20/2022 on the cardiac stepdown unit for acute hypoxemic respiratory failure. Patient seems to be delirious, and is a poor historian at this point. Reported medical history includes atrial fibrillation anticoagulated on Xarelto, hyperlipidemia, BPH, and hearing loss. Patient reportedly presented to the emergency room on October 18 with shortness of breath that started 3-4 days prior to arrival. Chest x-ray on arrival showed cardiomegaly with bilateral small pleural effusions and mild pulmonary vascular congestion concerning for CHF exacerbation, there were additional bilateral patchy infiltrates concerning for possible pneumonia. A follow-up chest CT demonstrated patchy consolidative opacities throughout both upper lungs, right mid lobe, and lingula consistent with pneumonia. There were also moderate size bilateral pleural effusions. Patient was admitted to the cardiac stepdown unit, and reportedly had a hypoxic episode yesterday afternoon. At that point, we were consulted. Patient is currently sitting up in bed, on 5 L/m nasal cannula, acutely confused. There is a airworthiness safety inspector at the bedside. He is receiving IV steroids. Blood pressures are marginal 80s/60s mmHg. Heart rhythm is atrial fibrillation with controlled ventricular rate. CBC arrival shows a WBC count of 5.2, hemoglobin 12.4, hematocrit 37.8, and platelets 172. Most recent BMP from yesterday shows a sodium 135, potassium 4.7, chloride 102, serum bicarb 21, BUN 67, creatinine 2.22, glucose 90. LFTs are elevated with an AST of 470, ALT of 343. Troponins are also elevated but stable at 0.07. Lactic acid level was elevated at 2.9 is down to 1.9. Pro calcitonin level was mildly elevated at 0.12. COVID-19 negative. D-dimer was elevated at 0.63, however, the patient is anticoagulated chronically on Xarelto and clinical suspicion for PE is low. Patient was placed on empiric antibiotics with a combination of azithromycin and Rocephin. He's afebrile. No IV maintenance fluids are infusing. Patient is receiving Lasix 20 mg twice a day. Patient's status is borderline, and his prognosis is guarded. Patient is a DO NOT RESUSCITATE/DO NOT INTUBATE. On today's evaluation, patient is being seen for a follow-up on 10/21/2022. Family is at the bedside. His condition is decompensated significantly. The patient is not producing any urine output. He was progressively more confused and lethargic and agitated yesterday. A Ross catheter was inserted in the urine output has been minimal at this point in time. No labs from today. The plan for this patient is to proceed with comfort care measures. The daughter and son at the bedside along with the grandkids and great grandkids. Patient was already given morphine. He is quite lethargic. He is comfortable. Breathing is mildly labored. Objective - Vital Signs Vital signs: Vital Signs Temp 97.4 F L 10/21/22 04:00 Pulse 75 10/21/22 08:00 Resp 20 10/21/22 08:00 BP 83/53 10/21/22 04:00 Pulse Ox 100 10/21/22 08:00 FiO2 50 10/19/22 15:18 Intake & Output 10/20/22 10/21/22 10/21/22 18:59 06:59 18:59 Intake Total 512 500 Output Total 50 50 Balance 462 450 Weight 59.5 kg Intake: Intake, IV Titration 500 Amount Sodium Chloride 0.9% 500 500 ml 500 ml @ 999 mls/hr IV .Q31M [facility] Rx#:[id number] Oral 512 Output: Urine 50 50 Uretheral (Ross) 50 Other: Voiding Method Indwelling Catheter Diaper Diaper # Voids 0 - Exam GENERAL EXAM: Alert but acutely confused and delirious , 87-year-old white male, who is anxious, on that, lethargic, currently on 5 L of oxygen by nasal cannula HEAD: Normocephalic and atraumatic EYES: Normal reaction of pupils, equal size. NOSE: Clear with pink turbinates. THROAT: No erythema or exudates. NECK: No masses, no JVD. CHEST: No chest wall deformity. LUNGS: Equal air entry with scattered rhonchi and bibasilar inspiratory crack les. On 5 L/m nasal cannula. No conversational dyspnea or accessory muscle use.. CVS: S1 and S2 normal with no audible murmur, irregular rhythm. No extra heart sounds ABDOMEN: No hepatosplenomegaly, active bowel sounds, no guarding or rigidity. SPINE: No scoliosis or deformity SKIN: No rashes CENTRAL NERVOUS SYSTEM: No focal deficits, tone is normal in all 4 extremities. EXTREMITIES: There is no peripheral edema, clubbing, or cyanosis. Peripheral pulses are intact. - Labs CBC & Chem 7: 10/20/22 07:49 10/20/22 07:49 Assessment and Plan Assessment: Acute hypoxemic respiratory failure, currently on 5 L/m nasal cannula, possibly multifactorial related to CHF exacerbation and bilateral community-acquired pn eumonia. Chest x-ray on arrival showed cardiomegaly with bilateral small pleural effusions and mild pulmonary vascular congestion concerning for CHF exacerbation, there were additional bilateral patchy infiltrates concerning for possible pneumonia. A follow-up chest CT demonstrated patchy consolidative opacities throughout both upper lungs, right mid lobe, and lingula consistent with pneumonia. Procalcitonin was mildly elevated at 0.12. No leukocytosis. [place] [address]. Systolic heart failure, chronic with an ejection fraction of 40-45% and moderate degree of aortic stenosis based on an echocardiogram that was done in 2020 Bilateral pleural effusions Atrial fibrillation with controlled ventricular rate, anticoagulated on Xarelto Acute delirium, possibly related to steroid psychosis Acute kidney injury, related to dehydration, creatinine 2.22, oliguric and u nable to produce any urine output. Rule out obstructive uropathy. Rule out ATN. Elevated LFTs, undetermined significance Elevated Troponins, are stable not indicating ACS Hyperlipidemia BPH Hearing loss. Large area of bruising along the left temporal scalp area. Patient had a limited trauma to his head. CAT scan of the brain has not been done. Nevertheless, is awake and alert in his neurologic exam is none focal. Plan: Patient's condition is decompensated Patient is doing poorly Reading remains labored and the patient has developed an acute kidney injury and no urine output at this point in time Family has decided to proceed with comfort care measures Is a DNR/DNI CODE STATUS Very poor prognosis
[2022-10-21] MEDS ORDERED: ATROPINE OPHTH SOLN 1% 5ML BTL SUBLINGUAL PRN (12:53)
[2022-10-21] MEDS ORDERED: SCOPOLAMINE 1 MG/72 HR PATCH TRANSDERM SCH (13:00)
[2022-10-21] MEDS ORDERED: MORPHINE SULFATE (100 MG/2 ML) 100 MG in SODIUM CHLORIDE 0.9% 100 ML IV SCH (13:30)
--- NOTE | 2022-10-21 17:54 | P.PN ---
Subjective Progress Note Date: 10/21/22 Subjective: Patient was seen and examined at bedside the same. BP 98/76 Hemoglobin 12, creatinine 2.53. Creatinine was 2.2 yesterday Echocardiogram: LVEF 10-15%, globally reduced EF, severe MR, severe aortic stenosis, moderate aortic insufficiency, moderate pulmonic insufficiency ASSESSMENT: Acute on chronic heart failure with perserved LV systolic function Permanent atrial fibrillation with controlled ventricular rate Abnormal troponins, not suggestive of acute coronary syndrome Marginal hypotension, which patient previously reports Acute on chronic kidney disease Valvular heart disease including aortic stenosis and mitral regurgitation Former nicotine dependence PLAN: Continue IV Lasix. Overall patient is a poor prognosis. He has end-stage heart failure with end- stage valvular heart disease. We will continue supportive management at this t jevon. Continue to monitor blood pressure Further recommendations pending patient's course HISTORY OF PRESENT ILLNESS: The patient is a pleasant 87-year-old gentleman with a past medical history significant for permanent atrial fibrillation on oral anticoagulation as well as history of smoking as well as significant hearing impairment. We consulted to see the patient for further evaluation of shortness of breath. The patient is somewhat a poor historian. He presented to the hospital with 3 days progressive exertional dyspnea as well as orthopnea. No lower extremity edema. No symptoms of any chest pain or chest discomfort and no dizziness or lightheadedness or any feeling of heart racing or fluttering or presyncope or syncope. He underwent further workup including EKG showing underlying atrial fibrillation which is known to him from before with diffuse nonspecific ST and T wave abnormalities and low voltage QRS and RBBB. 3 sets of cardiac enzymes came in to be mildly abnormal but appeared to be flattened across the board. Please note that the patient did not have any symptoms of chest pain or chest discomfort. Chest x- ray showed evidence of pulmonary vascular congestions and finding consistent with heart failure. NT proBNP came in to be significantly elevated at 21,000. No history of congestive heart failure. The last echo from 2020 showed normal biventricular dimension and systolic function was evidence of moderate aortic stenosis and uzmt-ky-jortmtvy mitral regurgitation. No echocardiogram was performed within the last few years. The patient does have marginally low blood pressure. At is known to him from before. Beside that he does have chronic kidney disease. The examination is remarkable for irregular rhythm with a systolic murmur at the right and left upper sternal border was diminished breathing sounds bilaterally and no lower extremities edema noted at this point 10/20/2022 Examined this morning at the bedside. Patient denies chest pain or pressure. He denies shortness of breath. He remains on IV Lasix. Patient's blood pressure overnight was in the 80s. Telemetry reveals atrial fibrillation with controlled ventricular rate. PHYSICAL EXAM: VITAL SIGNS: Reviewed. GENERAL: Well-developed in no acute distress. NECK: Supple. No JVD or thyromegaly LUNGS: Respirations even and unlabored. Lungs with crackles at the bases HEART: Irregular rate and rhythm. S1 and S2 heard. EXTREMITIES: Normal range of motion. No clubbing or cyanosis. Peripheral pulses intact. No lower extremity edema Objective - Vital Signs Vital signs: Vital Signs Temp 97.4 F L 10/21/22 04:00 Pulse 82 10/21/22 14:00 Resp 14 10/21/22 14:00 BP 83/53 10/21/22 04:00 Pulse Ox 100 10/21/22 12:00 FiO2 50 10/19/22 15:18 Intake & Output 10/20/22 10/21/22 10/21/22 18:59 06:59 18:59 Intake Total 512 500 500 Output Total 50 50 0 Balance 462 450 500 Weight 59.5 kg Intake: Intake, IV Titration 500 500 Amount Sodium Chloride 0.9% 1, 500 000 ml @ 50 mls/hr IV . Q20H [facility] Rx#:[id number] Sodium Chloride 0.9% 500 500 ml 500 ml @ 999 mls/hr IV .Q31M [facility] Rx#:[id number] Oral 512 Output: Urine 50 50 0 Uretheral (Ross) 50 Other: Voiding Method Indwelling Catheter Diaper Diaper # Voids 0 - Labs CBC & Chem 7: 10/20/22 07:49 10/20/22 07:49
--- NOTE | 2022-10-22 02:42 | PN ---
PROGRESS NOTE SUBJECTIVE: He is in with respiratory failure, bilateral pneumonia, CHF, ischemic cardiomyopathy. He is barely responding, hypoxemia, hypotension. Family made him comfort care, he is on comfort care measures. He is resting comfortably. He is not talking. He has kept his mouth open, got labored breathing. He has minimal secretions, is on comfort measures. Discussed with the family possibly pass away tonight. Prognosis is very poor. MMODL / IJN: [id number] /
[2022-10-22 05:31] VITALS: PULSE 120
--- NOTE | 2022-10-22 08:40 | CDI ---
Documentation Clarification Form Date: 10/22/2022 08:07:32 AM From: Natalie Plata RN CCDS Phone: [phone] Admit Date: 10/18/2022 07:44:00 PM Patient Name: Paddy Blakely Visit Number: [id number] Discharge Date: ATTENTION: The Clinical Documentation Specialists (CDI) and [facility] Coding Staff appreciate your assistance in clarifying documentation. Please respond to the clarification below the line at the bottom and electronically sign. The CDI & [facility] Coding staff will review the response and follow-up if needed. Please note: Queries are made part of the Legal Health Record. If you have any questions, please contact the author of this message via ITS. Dr. Brock Hernandez Acute delirium is documented 10/20, Pulmonary consult. Additional clarification is requested. History/Risk Factors: 87-year-old male presented to the ED 10/18 with shortness of breath that started three to four days prior. On 10/19 the patient had a hypoxic episode. Medical History: Atrial fibrillation; CKD, CHF, End stage heart failure. 10/19, Cardiology consult. Clinical Indicators: 10/18, CXR: Cardiomegaly, pulmonary vascular congestion and bilateral small pleural effusions. Patchy bibasilar airspace opacities. 10/18, VS: B/P 97/66; HR 103; Temp 97.4 F Oral; RR 18; SpO2 95% room air. 10/19 Physical exam Lungs H&P: Scattered rhonchi and wheeze. 10/19, HR 54, RR 26 short of breath, labored, accessory muscle use, Shallow and tachypenic. BiPAP FiO2 100 10/20, Pulmonary consult: Patient is currently sitting up in bed on 5L/m nasal cannula, acutely confused. Acute delirium, possibly related to steroid psychosis. 10/21, Pulmonary note: He was progressively more confused and lethargic and agitated yesterday. Treatment: Solumedrol 40mg IV Q8HR was ordered and discontinued on 10/19; size roller operator, BiPAP Please clarify the type of encephalopathy, if known: [ x ] Toxic Encephalopathy [ ] Other, please specify [ ] Unable to determine (Template Last Revised: April 2020) MTDD
[2022-10-22 10:27] VITALS: RESP 8
--- NOTE | 2022-10-22 13:33 | P.PN ---
Subjective Progress Note Date: 10/22/22 I am seeing this patient in consultation today 10/20/2022 on the cardiac stepdown unit for acute hypoxemic respiratory failure. Patient seems to be delirious, and is a poor historian at this point. Reported medical history includes atrial fibrillation anticoagulated on Xarelto, hyperlipidemia, BPH, and hearing loss. Patient reportedly presented to the emergency room on October 18 with shortness of breath that started 3-4 days prior to arrival. Chest x-ray on arrival showed cardiomegaly with bilateral small pleural effusions and mild pulmonary vascular congestion concerning for CHF exacerbation, there were additional bilateral patchy infiltrates concerning for possible pneumonia. A follow-up chest CT demonstrated patchy consolidative opacities throughout both upper lungs, right mid lobe, and lingula consistent with pneumonia. There were also moderate size bilateral pleural effusions. Patient was admitted to the cardiac stepdown unit, and reportedly had a hypoxic episode yesterday afternoon. At that point, we were consulted. Patient is currently sitting up in bed, on 5 L/m nasal cannula, acutely confused. There is a health safety instructor at the bedside. He is receiving IV steroids. Blood pressures are marginal 80s/60s mmHg. Heart rhythm is atrial fibrillation with controlled ventricular rate. CBC arrival shows a WBC count of 5.2, hemoglobin 12.4, hematocrit 37.8, and platelets 172. Most recent BMP from yesterday shows a sodium 135, potassium 4.7, chloride 102, serum bicarb 21, BUN 67, creatinine 2.22, glucose 90. LFTs are elevated with an AST of 470, ALT of 343. Troponins are also elevated but stable at 0.07. Lactic acid level was elevated at 2.9 is down to 1.9. Pro calcitonin level was mildly elevated at 0.12. COVID-19 negative. D-dimer was elevated at 0.63, however, the patient is anticoagulated chronically on Xarelto and clinical suspicion for PE is low. Patient was placed on empiric antibiotics with a combination of azithromycin and Rocephin. He's afebrile. No IV maintenance fluids are infusing. Patient is receiving Lasix 20 mg twice a day. Patient's status is borderline, and his prognosis is guarded. Patient is a DO NOT RESUSCITATE/DO NOT INTUBATE. On today's evaluation, patient is being seen for a follow-up on 10/21/2022. Family is at the bedside. His condition is decompensated significantly. The patient is not producing any urine output. He was progressively more confused and lethargic and agitated yesterday. A Ross catheter was inserted in the urine output has been minimal at this point in time. No labs from today. The plan for this patient is to proceed with comfort care measures. The daughter and son at the bedside along with the grandkids and great grandkids. Patient was already given morphine. He is quite lethargic. He is comfortable. Breathing is mildly labored. On 10/23/2019, the patient continues to undergo comfort measures. The patient is currently on scopolamine patch, morphine drip at 1 mg an hour and morphine pushes as needed and Ativan pushes as needed. He is on 2 L of oxygen by nasal cannula. His breathing shallow and he is using some eczematous of breathing. Markedly diminished level of consciousness. Objective - Vital Signs Vital signs: Vital Signs Temp 97.4 F L 10/21/22 04:00 Pulse 120 H 10/22/22 05:30 Resp 12 10/22/22 05:30 BP 83/53 10/21/22 04:00 Pulse Ox 95 10/22/22 08:49 FiO2 50 10/19/22 15:18 Intake & Output 10/21/22 10/22/22 10/22/22 18:59 06:59 18:59 Intake Total 500 34.238 Output Total 0 0 Balance 500 34.238 Intake: Intake, IV Titration 500 34.238 Amount Morphine Sulfate (100 mg/ 34.238 2 ml) 100 mg In Sodium Chloride 0.9% 100 ml @ 1 MG/HR 1.02 mls/hr IV . Q24H [facility] Rx#:[id number] Sodium Chloride 0.9% 1, 500 000 ml @ 50 mls/hr IV . Q20H [facility] Rx#:[id number] Oral 0 Output: Urine 0 0 Other: Voiding Method Diaper Diaper - Exam GENERAL EXAM: 87-year-old white male, who is anxious, on that, lethargic, currently on 2 L O2 nasal cannula, unresponsive HEAD: Normocephalic and atraumatic EYES: Normal reaction of pupils, equal size. NOSE: Clear with pink turbinates. THROAT: No erythema or exudates. NECK: No masses, no JVD. CHEST: No chest wall deformity. LUNGS: Equal air entry with scattered rhonchi and bibasilar inspiratory crackles. On 2 L nasal cannula CVS: S1 and S2 normal with no audible murmur, irregular rhythm. No extra heart sounds ABDOMEN: No hepatosplenomegaly, active bowel sounds, no guarding or rigidity. SPINE: No scoliosis or deformity SKIN: No rashes CENTRAL NERVOUS SYSTEM: Unresponsive EXTREMITIES: There is no peripheral edema, clubbing, or cyanosis. Peripheral pulses are intact. - Labs CBC & Chem 7: 10/20/22 07:49 10/20/22 07:49 Assessment and Plan Assessment: Acute hypoxemic respiratory failure, currently on 5 L/m nasal cannula, possibly multifactorial related to CHF exacerbation and bilateral community-acquired pneumonia. Chest x-ray on arrival showed cardiomegaly with bilateral small pleural effusions and mild pulmonary vascular congestion concerning for CHF exacerbation, there were additional bilateral patchy infiltrates concerning for possible pneumonia. A follow-up chest CT demonstrated patchy consolidative opacities throughout both upper lungs, right mid lobe, and lingula consistent with pneumonia. Procalcitonin was mildly elevated at 0.12. No leukocytosis. [place] [address]. 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 Rule out obstructive uropathy. Rule out ATN. Elevated LFTs, undetermined significance Elevated Troponins, are stable not indicating ACS Hyperlipidemia BPH Hearing loss. Large area of bruising along the left temporal scalp area. Patient had a limit ed trauma to his head. CAT scan of the brain has not been done. Nevertheless, is awake and alert in his neurologic exam is none focal. Plan: Continue comfort measures Morphine drip Ativan and morphine IV push as needed Family the bedside Pulmonary critical care services will sign off Very poor prognosis
== END 2022-10-22 15:52 | disposition expired | DRG 291 ==
LOC: EC 17:21 → 3SCARD 19:44
PROVIDERS: ADMIT Family Medicine; ATTEND Family Medicine
DX: I13.0 Hypertensive heart and chronic kidney disease with heart failure and stage 1 through stage 4 chronic kidney disease, or unspecified chronic kidney disease (principal); G92.8 Other toxic encephalopathy; I50.23 Acute on chronic systolic (congestive) heart failure; J18.9 Pneumonia, unspecified organism; N17.0 Acute kidney failure with tubular necrosis; J96.21 Acute and chronic respiratory failure with hypoxia; I45.2 Bifascicular block; E87.20 Acidosis, unspecified; J44.0 Chronic obstructive pulmonary disease with (acute) lower respiratory infection; I48.21 Permanent atrial fibrillation; Z66 Do not resuscitate; T38.0X5A Adverse effect of glucocorticoids and synthetic analogues, initial encounter; Z51.5 Encounter for palliative care; Z20.822 Contact with and (suspected) exposure to COVID-19; I95.9 Hypotension, unspecified; R74.01 Elevation of levels of liver transaminase levels; S00.03XA Contusion of scalp, initial encounter; R94.6 Abnormal results of thyroid function studies; H91.92 Unspecified hearing loss, left ear; N40.0 Benign prostatic hyperplasia without lower urinary tract symptoms; R45.1 Restlessness and agitation; N18.31 Chronic kidney disease, stage 3a; R79.1 Abnormal coagulation profile; E86.0 Dehydration; I5A Non-ischemic myocardial injury (non-traumatic); I08.0 Rheumatic disorders of both mitral and aortic valves; E78.5 Hyperlipidemia, unspecified; I25.5 Ischemic cardiomyopathy; Z79.899 Other long term (current) drug therapy; Z79.01 Long term (current) use of anticoagulants; Z87.891 Personal history of nicotine dependence
CPT/HCPCS: 36415; 71046; 71250; 74150; 76770; 80053; 82533; 83605; 83735; 83880; 84145; 84439; 84443; 84481; 84484; 85025; 85379; 85610; 85730; 87635; 93005; 93306; 94640; 94660; 94760; 96374; 99285